=== PATIENT | male | born 1950 | race Caucasian/White ===

== ENCOUNTER 2019-08-22 08:07 | Emergency (ER) | payer MEDICARE, SELFPAY ==
[2019-08-22 08:17] VITALS: BP 203/149; PULSE 116; RESP 18; TEMP 36.7; O2SAT 96; BMI 28.0
--- NOTE | 2019-08-22 08:23 | XR_ITS ---
WS: [id number] PORTABLE CHEST HISTORY: dyspnea COMPARISON: None available. Atelectasis at the lung bases. Small bilateral pleural effusions. At this time there is no significan t cephalization. Cardiac size: Moderately enlarged cardiac silhouette. Mediastinum/Aorta: Mild atherosclerosis aorta. No osseous abnormality seen. XR/XR chest 1V portable [id number] IMPRESSION: Moderate cardiomegaly with small bilateral pleural effusions.
--- NOTE | 2019-08-22 08:23 | ECG_ITS ---
Measurements Intervals [place] Rate: 109 P: ME: 0 QRS: 9 QRSD: 113 T: 65 QT: 332 QTc: 448 ATRIAL FIBRILLATION WITH RAPID VENTRICULAR RESPONSE MODERATE INTRAVENTRICULAR CONDUCTION DELAY [110+ ms QRS DURATION] NONSPECIFIC ST & T-WAVE ABNORMALITY No previous ECG available for comparison Electronically Signed On 08-22-2019 11:49:08 CDT by Nadiya Mendoza M.D. [id number] f
--- NOTE | 2019-08-22 08:32 | W.ED.SOB ---
HPI - SOB/Dyspnea General: Chief Complaint: Shortness of Breath/Dyspnea Stated Complaint: sob/leg swelling Time Seen by Provider: 08/22/19 08:18 History of Present Illness: HPI Narrative: Patient is a 69 year old male presenting with shortness of breath and leg swelling for about 4 days. He reports that in the morning he gets up and the swelling is better in his legs, but then gets worse throughout the day. At night he lays down ok, but after a few hours he wakes up and has to sit up the rest of the night because he can't breath if he lays down. He gets very SOB with exertion. He denies and medical history. He only takes naprosyn about every 3 days or so for knee pain. MD elicited complaint: shortness of breath Onset (ago): day(s) (4) Timing: constant Severity: severe Exacerbating factors: lying flat and exertion Relieving factors: upright position Associated symptoms: Reports orthopnea; Deny abdominal pain, chest pain, cough, dizziness or fever(s) Treatment prior to arrival: none Review of Systems General: Reports: 10 or more systems reviewed and unremarkable except in HPI and below Const: Denies: fever(s), chills, fatigue or malaise Eyes: Denies: change in vision ENMT: Denies: odynophagia Card: Reports: edema, swelling of feet/ankles, dyspnea on exertion and orthopnea; Denies: chest pain Resp: Reports: dyspnea; Denies: productive cough or non-productive cough GI: Denies: abdominal pain : Denies: flank pain Musc: Denies: neck pain or back pain Skin/Breast: Denies: rash Neuro: Denies: dizziness Thomas/Lymph: Denies: easy bruising or easy bleeding PFS ED PFSH: Social History Smoking and tobacco status: never smoked Physical Exam Const: COMMON NORMALS: no acute distress, patient oriented x3, no limitations and alert GENERAL APPEARANCE: cooperative and comfortable HENMT: HEAD & SCALP: normal to inspection FACE & SINUS: normal facial exam Eye: GENERAL EYE: appearance normal, both eyes and all related structures Neck/C-Spine: COMMON NORMALS: supple, no meningeal signs and no JVD Chest: COMMONS NORMALS: normal inspection of the chest Resp: COMMON NORMALS: clear to auscultation bilaterally EFFORT & INSPECTION: Yes tachypneic AUSCULTATION: clear to auscultation bilaterally Cardio: COMMON NORMALS: no JVD and No murmurs present (Cardio) RATE: tachycardic RHYTHM: abnormal rhythm irregularly irregular GI: COMMON NORMALS: Normal to inspection, nondistended, normoactive bowel sounds present, Soft to palpation and non-tender INSPECTION: Yes normal to inspection AUSCULTATION: Yes normoactive bowel sounds PALPATION: Yes Soft to palpation Back/Pelvis: COMMON NORMALS: thoracic and lumbar spine normal to inspection Extremity: COMMON NORMALS: normal to inspection; negative for no pedal edema Neuro: COMMON NORMALS: patient oriented x3, moves all extremities, no focal motor deficits and no sensory deficits noted SENSORIUM/ORIENTATION: Yes alert MENINGEAL SIGNS: Yes no meningeal signs Psych: COMMON NORMALS: mental status grossly normal, cooperative and normal affect Skin: COMMON NORMALS: no rashes or lesions noted and turgor normal GENERAL SKIN EXAM: no rashes or lesions noted and turgor normal Course ED course: Patient new onset a. fib and marked swelling and CHF. He refuses to be admitted to the hospital because his doesn't drive and he doesn't want to have her home alone. I discussed the reasons that I want him to stay in the hospital and he understands - but will not stay. He was given IV lasix and had good urine output. His HR remained between 100 and 120 and his BP remained high - 196/108 even after a good volume of diuresis. I have ordered a dose of cardizem - and if he really won't stay in the end - I will probably send him home on cardizem, lasix, eliquis and arrange for close cardiology follow up. Reevaluation(s): Reevaluation #1: Patient is doing very well. His blood pressures down to 163/93. Heart rate is 89 still in atrial fibrillation. Sats are 94%. He reports feeling much better and has diuresed at least 1500 mL's of urine. He is agreeable to a blood thinner. He has actually an outpatient follow-up appointment with his PCP, Dr. Santos on . He will keep that and I have also put an order for him to follow-up with cardiology. I spoke to Dr. Borrero who agreed with the plan. Also ordered an outpatient echo. Vital Signs: Vital signs: Vital Signs Temperature 98.0 F 08/22/19 08:17 Pulse Rate 86 08/22/19 11:40 Respiratory Rate 19 H 08/22/19 11:40 Blood Pressure 200/112 08/22/19 11:40 Pulse Oximetry 93 08/22/19 11:40 MDM - SOB/Dyspnea Lab Data: Labs: Lab Results 08/22/19 08/22/19 08/22/19 Range/Units 08:30 08:30 08:30 WBC 8.1 (4.0-10.0) 10^3/ uL RBC 5.22 (4.1-5.3) 10^6/u L Hgb 17.8 H (11.7-16.6) g/dL Hct 52.3 H (42.0-52.0) % MCV 100.2 H (80-94) fL MCH 34.1 H (28.0-34.0) pg MCHC 34.0 (30.0-36.0) g/dL RDW 12.3 (12.1-15.1) % Plt Count 134 (130-400) 10^3/c mm MPV 11.1 H (7.4-10.4) fL Neut % (Auto) 74.8 % Lymph % (Auto) 17.3 % [place] % (Auto) 5.2 % Eos % (Auto) 1.9 % Baso % (Auto) 0.6 % Neut # (Auto) 6.0 (1.8-7.7) 10^3/u L Lymph # (Auto) 1.4 (0.8-4.8) 10^3/u L [place] # (Auto) 0.4 (0.2-0.9) 10^3/u L Eos # (Auto) 0.2 (0.0-0.8) 10^3/u L Baso # (Auto) 0.1 (0.0-0.1) 10^3/u L Nucleated RBC % (a uto) 0 % Nucleated RBCs # 0.0 /100WBC Sodium 140 (136-145) mmol/L Potassium 4.9 (3.5-5.1) mmol/L Chloride 101 (98-107) mmol/L Carbon Dioxide 26 (22-29) mmol/L Anion Gap 17.9 (5-19) BUN 14 (8-23) mg/dL Creatinine 0.9 (0.7-1.2) mg/dL GFR Calculation 83.7 L (90-130) mL/min Glucose 123 H (65-115) mg/dL Calculated Osmolal ity 288 (285-295) mOsm/k g Lactate 1.3 (0.5-2.2) mmol/L Calcium 10.2 (8.5-10.5) mg/dL Total Bilirubin 1.3 H (0.15-1.2) mg/dL AST 38 (0-40) U/L ALT 27 (0-41) U/L Alkaline Phosphata se 70 (40-130) IU/L Troponin T Baselin e (0-15) ng/mL Troponin T 120 Min [place] (0-15) ng/mL Delta Troponin T (0-10) ABS# NT-Pro-B Natriuret Pep 8536 H (0-125) pg/mL Total Protein 7.2 (6.6-8.7) g/dL Albumin 4.5 (3.5-5.2) g/dL Globulin 2.7 (1.3-4.6) g/dL Urine Color (Yellow) Urine Appearance (CLEAR) Urine pH (5-7) Ur Specific Gravit y (1.005-1.030) Urine Protein (Negative) Urine Glucose (UA) (Normal) Urine Ketones (Negative) Urine Blood (Negative) Urine Nitrate (Negative) Urine Bilirubin (NEGATIVE) Urine Urobilinogen (Negative) mg/dL Ur Leukocyte Radha ase (Negative) 08/22/19 08/22/19 08/22/19 Range/Units 08:30 08:55 10:23 WBC (4.0-10.0) 10^3/ uL RBC (4.1-5.3) 10^6/u L Hgb (11.7-16.6) g/dL Hct (42.0-52.0) % MCV (80-94) fL MCH (28.0-34.0) pg MCHC (30.0-36.0) g/dL RDW (12.1-15.1) % Plt Count (130-400) 10^3/c mm MPV (7.4-10.4) fL Neut % (Auto) % Lymph % (Auto) % [place] % (Auto) % Eos % (Auto) % Baso % (Auto) % Neut # (Auto) (1.8-7.7) 10^3/u L Lymph # (Auto) (0.8-4.8) 10^3/u L [place] # (Auto) (0.2-0.9) 10^3/u L Eos # (Auto) (0.0-0.8) 10^3/u L Baso # (Auto) (0.0-0.1) 10^3/u L Nucleated RBC % (a uto) % Nucleated RBCs # /100WBC Sodium (136-145) mmol/L Potassium (3.5-5.1) mmol/L Chloride (98-107) mmol/L Carbon Dioxide (22-29) mmol/L Anion Gap (5-19) BUN (8-23) mg/dL Creatinine (0.7-1.2) mg/dL GFR Calculation (90-130) mL/min Glucose (65-115) mg/dL Calculated Osmolal ity (285-295) mOsm/k g Lactate (0.5-2.2) mmol/L Calcium (8.5-10.5) mg/dL Total Bilirubin (0.15-1.2) mg/dL AST (0-40) U/L ALT (0-41) U/L Alkaline Phosphata se (40-130) IU/L Troponin T Baselin e 70 H (0-15) ng/mL Troponin T 120 Min [place] 65.70 H (0-15) ng/mL Delta Troponin T -4.30 L (0-10) ABS# NT-Pro-B Natriuret Pep (0-125) pg/mL Total Protein (6.6-8.7) g/dL Albumin (3.5-5.2) g/dL Globulin (1.3-4.6) g/dL Urine Color Yellow (Yellow) Urine Appearance Clear (CLEAR) Urine pH 6 (5-7) Ur Specific Gravit y 1.005 (1.005-1.030) Urine Protein Neg (Negative) Urine Glucose (UA) Norm (Normal) Urine Ketones Negative (Negative) Urine Blood Neg (Negative) Urine Nitrate Negative (Negative) Urine Bilirubin Neg (NEGATIVE) Urine Urobilinogen Norm (Negative) mg/dL Ur Leukocyte Radha ase Negative (Negative) Discharge Plan Discharge Patient Disposition: Home, Self-Care Clinical Impression: Atrial fibrillation with RVR Congestive heart failure Qualifiers: Heart failure type: unspecified Heart failure chronicity: acute Qualified Code(s): I50.9 - Heart failure, unspecified Condition: Stable Prescriptions: New furosemide 20 mg tablet 20 mg PO QAM Qty: 30 RF: 0 Eliquis 5 mg tablet 5 mg PO BID Qty: 60 RF: 0 diltiazem HCl 120 mg capsule,extended release 12 hr 120 mg PO BID Qty: 60 RF: 0 Discharge Orders: Discharge Order (Routine); Ordered 08/22/19 Ordered By: Chiquita Mccann Other Ambulatory Orders: CV echo complete* [id number] (Routine) Timeframe: 2 Weeks Facility: [facility] - Location: Radiology Ordered By: Chiquita Mccann Referrals: Tiffany Reyes MD [Physician] - 2 weeks (new onset atrial fibrillation and new onset CHF) Discharge Diet: Low Salt Discharge Activity: Resume usual activity Patient Instructions: Heart Failure (ED), Atrial Fibrillation (ED) Activity Restrictions/Additional Instructions: Please see your primary care doctor as scheduled. Follow up with the audio visual aids director as well. We have ordered an outpatient ultrasound of your heart to be done before you see the audio visual aids director. Take the medications as prescribed. You may take two of the furosemide pills in a day if one doesn't seem to be making you urinate a lot. Return to the ED if not improving or if any new or worse symptoms. Coding Level of Care Code ED Customer Engagement Representative for Bernabe Mathew Exam Comprehensive
[2019-08-22 08:39] LABS: Basophils # 0.1 10^3/uL (0.0-0.1); Basophils % 0.6 %; Eosinophils # 0.2 10^3/uL (0.0-0.8); Eosinophils % 1.9 %; Hematocrit 52.3 % (42.0-52.0); Hemoglobin 17.8 g/dL (11.7-16.6); Lymphocytes # 1.4 10^3/uL (0.8-4.8); Lymphocytes % 17.3 %; Mean Corpuscular Hemoglobin 34.1 pg (28.0-34.0); Mean Corpuscular Volume 100.2 fL (80-94); Mean Platelet Volume 11.1 fL (7.4-10.4); Monocytes # 0.4 10^3/uL (0.2-0.9); Monocytes % 5.2 %; Neutrophils % 74.8 %; Nucleated Red Blood Cells % 0 %; Platelet Count 134 10^3/cmm (130-400); Red Blood Count 5.22 10^6/uL (4.1-5.3); Red Cell Distribution Width 12.3 % (12.1-15.1); White Blood Count 8.1 10^3/uL (4.0-10.0)
[2019-08-22 08:52] VITALS: O2SAT 97
[2019-08-22 08:58] LABS: Lactate (Lactic Acid level) 1.3 mmol/L (0.5-2.2)
[2019-08-22 09:00] LABS: Troponin(5th) Baseline 70 ng/mL (0-15)
[2019-08-22 09:08] LABS: Alanine Aminotransferase 27 U/L (0-41); Albumin Level 4.5 g/dL (3.5-5.2); Alkaline Phosphatase 70 IU/L (40-130); Anion Gap 17.9 (5-19); Aspartate Amino Transferase 38 U/L (0-40); Blood Urea Nitrogen 14 mg/dL (8-23); Calcium 10.2 mg/dL (8.5-10.5); Carbon Dioxide 26 mmol/L (22-29); Chloride 101 mmol/L (98-107); Globulin 2.7 g/dL (1.3-4.6); Glomerular Filtration Rate 83.7 mL/min (90-130); Glucose 123 mg/dL (65-115); NT Pro B Type Natriuretic Pept 8536 pg/mL (0-125); Osmolality Calculated 288 mOsm/kg (285-295); Potassium 4.9 mmol/L (3.5-5.1); Sodium 140 mmol/L (136-145); Total Bilirubin 1.3 mg/dL (0.15-1.2); Total Protein 7.2 g/dL (6.6-8.7)
[2019-08-22] MEDS: FUROsemide 10 mg/mL SDV 4mL 40 MG IVP (10:02)
[2019-08-22] MEDS: enoxaparin 100 mg/mL Syringe SUBCUT (10:02)
[2019-08-22 10:08] VITALS: BP 192/121; PULSE 102; RESP 27; O2SAT 93
--- NOTE | 2019-08-22 10:23 | ECG_ITS ---
Measurements Intervals [place] Rate: 100 P: SD: 0 QRS: 10 QRSD: 110 T: 56 QT: 340 QTc: 440 ATRIAL FIBRILLATION WITH RAPID VENTRICULAR RESPONSE MODERATE INTRAVENTRICULAR CONDUCTION DELAY NONSPECIFIC ST & T-WAVE ABNORMALITY No previous ECG available for comparison Electronically Signed On 08-22-2019 11:52:50 CDT by Nadiya Mendoza M.D. [id number]
[2019-08-22 10:48] LABS: Add Urine Microscopic? NO
[2019-08-22 10:55] LABS: Bilirubin Urine Neg (NEGATIVE); Blood Urine Neg (Negative); Glucose Urine UA Norm (Normal); Ketones Urine Negative (Negative); Leukocyte Esterase Urine Negative (Negative); Nitrate Urine Negative (Negative); Protein Urine Neg (Negative); Specific Gravity, Urine 1.005 (1.005-1.030); Urine Appearance Clear (CLEAR); Urine Color Yellow (Yellow); Urobilinogen Urine Norm (Negative); pH Urine 6 (5-7)
[2019-08-22 11:40] VITALS: BP 200/112; PULSE 86; RESP 19; O2SAT 93
[2019-08-22 13:20] VITALS: BP 163/93; PULSE 93; RESP 23; O2SAT 94
--- NOTE | 2019-08-23 10:25 | DCPLANNER ---
photography manager was asked to schedule an outpatient echo for patient and a follow up appointment for patient with [facility]. photography manager got order signed and faxed order to centralized scheduling, will call for appointment information.
--- NOTE | 2019-08-24 11:24 | DCPLANNER ---
Patient has a Echo scheduled for September 07, 2019 at 10:15. manager education called [facility], spoke with Hattie, informed her of the echo scheduled. [facility] will schedule a follow up appointment for patient after the echo, clinic will call patient with appointment information.
--- NOTE | 2019-08-28 07:35 | DCPLANNER ---
Patient has a follow up appointment scheduled with [facility] on Tuesday, September 12, 2019 at 10:15. Clinic will call patient with appointment information.
--- NOTE | 2019-09-26 13:06 | DCPLANNER ---
Patient did attend both the echo cardiogram and follow up with [facility].
== END 2019-08-22 13:20 | disposition home or self-care (01) ==
PROVIDERS: Emergency Provider Emergency Medicine
DX: I50.9 Heart failure, unspecified (principal); I48.20 Chronic atrial fibrillation, unspecified
CPT/HCPCS: 12345; 36415; 71045; 80053; 81003; 83605; 83880; 84484; 85025; 93005; 96372; 96374; 96375; 99283; 99284; J1650; J1940; J3490

== ENCOUNTER 2019-09-07 10:18 | Outpatient (CLI) | payer MEDICARE, SELFPAY ==
--- NOTE | 2019-09-07 10:15 | USCV_ITS ---
Nate Barrera Age: 69 Gender: M : 1950 Exam Date: 09/07/2019 10:23 Ordering Phys: Chiquita Mccann MD Technologist: Negar Vargas [place] [facility] [place]: CHF,AFIB BP: 187 / 73 HR: 75 Rhythm: Sinus Technical Quality: Adequate MEASUREMENTS (Male / Female) Normal Values 2D ECHO LV Diastolic Diameter PLAX 5.7 cm 4.2 - 5.9 / 3.9 - 5.3 cm LV Systolic Diameter PLAX 4.8 cm LV Chamber Size 5.9 cm IVS Diastolic Thickness 1.4 cm 0.6 - 1.0 / 0.6 - 0.9 cm IVS Systolic Thickness 1.7 cm LVPW Diastolic Thickness 2.6 cm 0.6 - 1.0 / 0.6 - 0.9 cm LVPW Systolic Thickness 2.7 cm RV Chamber Size 4.8 cm LVOT Diameter 2.0 cm LV Ejection Fraction 2D Teich 34.7 % LV Ejection Fraction MOD 2C 44.9 % LV Ejection Fraction 2C AL 47.4 % LA Diameter 6.0 cm LA Width 5.5 cm LA Height 6.1 cm RA Width 4.9 cm RA Height 5.9 cm Aorta at Sinotubular Diameter 3.7 cm M-MODE LV Diastolic Diameter MM 7.3 cm 4.2 - 5.9 / 3.9 - 5.3 cm LV Systolic Diameter MM 5.6 cm LV Ejection Fraction MM Teich 46.4 % IVS Diastolic Thickness MM 1.2 cm 0.6 - 1.0 / 0.6 - 0.9 cm IVS Systolic Thickness MM 1.2 cm LVPW Diastolic Thickness MM 0.9 cm 0.6 - 1.0 / 0.6 - 0.9 cm LVPW Systolic Thickness MM 1.4 cm Aortic Annulus Diameter 3.8 cm LA Ao Ratio MM 1.6 MV E Point Septal Separation 1.8 cm DOPPLER AV Peak Velocity 187.0 cm/s LVOT Peak Velocity 104.0 cm/s AV Area Cont Eq vti 1.7 cm squared AV Area Cont Eq pk 1.8 cm squared MV Area PHT 5.4 cm squared Mitral E to A Ratio 3.4 MV E' Velocity 11.0 cm/s Mitral E to MV E' Ratio 12.9 Mitral E to LV E' Lateral Ratio 11.3 Mitral E to LV E' Septal Ratio 15.2 TR Peak Velocity 350.0 cm/s TR Peak Gradient 49.1 mmHg TV Peak E Velocity 63.0 cm/s Right Atrial Pressure 3.0 mmHg Pulmonary Artery Systolic Pressu 52.0 mmHg PV Peak Velocity 68.0 cm/s RV Acceleration Time 0.1 s RV Ejection Time 0.3 s RV AcT/ET 0.3 FINDINGS Left Ventricle Normal LV size with a slightly reduced ejection fraction of 45%. Diffuse hypokinesia of the left ventricle Right Ventricle Normal right ventricular size and systolic function. Right Atrium Mildly increased right atrial size. Left Atrium Moderately increased left atrial size. Mitral Valve Thickened mitral valve. Mild-moderate mitral valve regurgitation. Aortic Valve Thickened aortic valve. [id number]-[id number] aortic valve regurgitation. Tricuspid Valve Mild tricuspid valve regurgitation. Pulmonic Valve No gross abnormalities noted Pericardium No pericardial effusion. Aorta Normal aortic annulus size. CONCLUSIONS Normal LV size with a slightly reduced ejection fraction of 45%. Diffuse hypokinesia of the left ventricle. Biatrial enlargement, left worse than the right Thickened mitral valve. Mild-moderate mitral valve regurgitation. Thickened aortic valve. [id number] aortic valve regurgitation. No gross abnormalities noted. There are no intracardiac masses. There is no pericardial effusion. There are no prior echocardiogram studies to compare. Dr Ashly Gomez MD FACC (Electronically Signed) Final Date: 07 September 2019 16:07 S
== END 2019-09-07 10:19 | disposition home or self-care (01) ==
LOC: RAD 10:24
PROVIDERS: PCP Family Medicine; Visit Provider Emergency Medicine
DX: I48.91 Unspecified atrial fibrillation (principal); I50.9 Heart failure, unspecified; I08.0 Rheumatic disorders of both mitral and aortic valves
CPT/HCPCS: 93306

== ENCOUNTER 2022-08-20 15:39 | Outpatient (CLI) | payer OTHER, SELFPAY ==
--- NOTE | 2022-08-20 15:55 | CTR_ITS ---
PROCEDURE INFORMATION: Exam: CT Chest With Contrast; Diagnostic Exam date and time: 08/20/2022 4:22 PM Age: 72 years old Clinical indication: Shortness of breath; Patient HX: Worsening SOB, PT was told at clinic that he has fluid on lungs that needs to be drained, no mention of malignancy; Additional info: Malignant pleural effusion TECHNIQUE: Imaging protocol: Diagnostic computed tomography of the chest with contrast. Radiation optimization: All CT scans at this facility use at least one of these dose optimization techniques: automated exposure control; mA and/or kV adjustment per patient size (includes targeted exams where dose is matched to clinical indication); or iterative reconstruction. Contrast material: OMNI 350; Contrast volume: 100 ml; Contrast route: INTRAVENOUS (IV); REPORTING DATA: Count of CT and Cardiac NM exams in prior 12 months: This patient has received 0 known CTs and 0 known cardiac nuclear medicine studies in the 12 months prior to the current study. COMPARISON: CR XR chest 1V portable [id number] 08/22/2019 8:23 AM RADIATION DOSE METRICS: Total DLP (mGy-cm): 216.48 FINDINGS: Trachea: Tracheobronchial structures are patent. Lungs: There is linear scarring in the mid and lower lungs bilaterally. Multiple peripheral opacities in the left lingula and right and left lower lobes. There are vessels swirling towards these areas. Findings may represent areas of rounded atelectasis. Area in the right lower lobe measures 3.4 x 5.7 cm (series 3, image 53). Area in the left lower lobe measures 2.8 x 6.4 cm (series 3, image 42). Area in the left lingula measures 3.7 x 1.4 cm (series 3, image 34). No pulmonary parenchymal nodules. Pleural spaces: Mild pleural thickening with associated partially loculated small pleural effusions bilaterally. Heart: Marked enlargement of the heart. Calcification of the aortic valve and mitral valve annulus. Coronary arteries: Mild atherosclerotic calcification in the coronary arteries. Esophagus: The esophagus is unremarkable. Mediastinal space: No mediastinal hematoma. No pneumomediastinum. Lymph nodes: No lymphadenopathy. Vasculature: Mild atherosclerotic changes in the visualized arteries. No evidence for aortic aneurysm or aortic dissection. Pulmonary arteries are unremarkable. Pulmonary veins are unremarkable. Liver: The visualized liver is unremarkable. Spleen: The visualized spleen is unremarkable. Adrenal glands: The visualized right and left adrenal glands are unremarkable. Bones/joints: Bones are diffusely osteopenic. Degenerative changes in the spine and shoulders. Calcification of the anterior longitudinal ligament at multiple levels in the thoracic spine, possibly representing diffuse idiopathic skeletal hyperostosis (DISH). No lytic or sclerotic bony lesions. Soft tissues: The extrathoracic soft tissues are unremarkable. CT/CT chest w con* [id number] IMPRESSION: 1. Mild pleural thickening with associated partially loculated small pleural effusions bilaterally. It is uncertain whether a findings may represent an acute process or if findings are more chronic and related to areas of rounded atelectasis. Clinical correlation is recommended to rule out possible infected pleural effusions. 2. Findings in both lungs suggesting areas of rounded atelectasis. 3. Incidental/nonacute findings are listed in the report.
[2022-08-20] MEDS: iohexol 350 mg/mL 500 mL Btl (per mL) IV (15:56)
[2022-08-20 16:21] LABS: Blood Urea Nitrogen 35 mg/dL (8-23)
== END 2022-08-20 15:40 | disposition home or self-care (01) ==
PROVIDERS: PCP Family Medicine; Visit Provider Family Medicine
DX: C80.1 Malignant (primary) neoplasm, unspecified (principal); J91.0 Malignant pleural effusion; R06.02 Shortness of breath
CPT/HCPCS: 71260; 82565; 84520; Q9967

== ENCOUNTER → 2022-10-21 12:05 | Outpatient (BNVA) | payer OTHER, SELFPAY | PROVIDERS: PCP Family Medicine; Visit Provider Internal Medicine Pulmonary Disease | DX: R06.02 Shortness of breath (principal) | CPT/HCPCS: 36415; 82785; 85025; 86003 ==

== ENCOUNTER 2022-11-06 05:50 | Outpatient (CLI) | payer MEDICARE, SELFPAY ==
--- NOTE | 2022-11-06 10:00 | PETR_ITS ---
PROCEDURE INFORMATION: Exam: PET/CT Skull Base to Mid-thigh Exam date and time: 11/06/2022 10:55 AM Age: 72 years old Clinical indication: Symptoms: Pleural scarring as well as opacities; Additional info: Lung cancer screening, pleural scarring as well as opacities. LABS AND CLINICAL REPORTS: Glucose: 92 mg/dl Treatment strategy for malignancy (PET staging): Initial Staging (PI) TECHNIQUE: Imaging protocol: Following at least four-hour fasting and following the injection of radiopharmaceutical, low dose CT images were obtained. Then, PET images were obtained. Attenuation corrected images were constructed using the CT scan. Fused images of PET and CT were reviewed. The standardized uptake values (SUV) reported below are maximum values within a region of interest, expressed in gm/ml. Exam includes orbital meatal line to mid-thigh. Radiopharmaceutical: 12.44 mCi F-18 FDG (Fluorodeoxyglucose), IV. Time of imaging post radiopharmaceutical administration: 58.5 minutes. Injection site: Right antecubital vein. COMPARISON: CT chest w con* [id number] 08/20/2022. CR XR chest [id number] 08/22/2019. FINDINGS: Brain: Visualized brain has normal physiologic uptake. Dental: Focal increased FDG uptake in the right maxilla at tooth #5 is consistent with a periapical tooth abscess. There is a periapical lucency. Its SUV max is 5.9 (series 4, image 20). Pharynx: No abnormal uptake. Larynx: No abnormal uptake. Lungs, pleura and trachea: No abnormal uptake. Small bilateral pleural effusions appear partially loculated. They were present on the comparison chest x-ray in 2019. No FDG avid pulmonary nodule or mass. Scattered non FDG avid subpleural soft tissue densities at the peripheral aspects of the both lower lobes are consistent with atelectasis and/or scarring. They do not require imaging follow-up. Heart: Stable marked cardiomegaly. Mediastinal space: No abnormal uptake. Liver: No abnormal uptake. Gallbladder and bile ducts: Multiple gallstones are present. No pericholecystic inflammatory changes to suggest cholecystitis. No biliary ductal dilatation. Pancreas: No abnormal uptake. Spleen: The spleen is unremarkable. Adrenal glands: The adrenals are normal. Kidneys and ureters: There is no hydronephrosis, stone or renal mass. Stomach and bowel: No abnormal uptake. Reproductive: Mild prostate enlargement. Vasculature: No abnormal uptake. The abdominal aorta is mildly calcified and 2.8 cm in maximum diameter. Lymph nodes: No abnormal uptake. No lymphadenopathy in the head, neck, chest, abdomen, pelvis or extremities. Bones/joints: No metabolically active areas. Soft tissues: A small fat containing umbilical hernia is 2.5 x 1.4 x 1.7 cm (transverse x ant-post x craniocaudal). Mild increased uptake within the right olecranon bursa is consistent with mild or chronic olecranon bursitis (series 4, image 98). Max SUV is 3.2. PET[facility] [id number] IMPRESSION: 1. No evidence of cancer in the thorax. Small chronic bilateral pleural effusions appear partially loculated. No FDG avid pulmonary nodule. Scattered subpleural densities in the lower lobes are consistent with atelectasis and/or fibrosis. 2. Stable marked cardiomegaly is consistent with chronic congestive heart failure. 3. Cholelithiasis without CT evidence of acute cholecystitis. 4. Focal FDG avidity in the right maxilla at tooth #5 is consistent with a periapical tooth abscess. 5. Additional incidental findings detailed above.
== END 2022-11-06 05:51 | disposition home or self-care (01) ==
PROVIDERS: PCP Family Medicine; Visit Provider Internal Medicine Pulmonary Disease
DX: R93.89 Abnormal findings on diagnostic imaging of other specified body structures (principal)
CPT/HCPCS: 78815; A9552

== ENCOUNTER 2022-11-12 08:56 | Outpatient (CLI) | payer MEDICARE, SELFPAY ==
--- NOTE | 2022-11-12 | ECG_ITS ---
[facility] Test Date: 2022-11-12 Pat Name: Nate Barrera Department: Room: Gender: Male Scale Operator: : 1950 Requested By: Reagan [employer] B Order Number: [id number] Jason MD: Nadiya Mendoza M.D. Interpretive Statements NAME OF STUDY: LEXISCAN SESTAMIBI STRESS TEST INDICATION: Increased shortness of breath PROCEDURE: At the baseline, the blood pressure was 109/89 mmHg with a heart rate of 66 bpm. The electrocardiogram showed atrial fibrillation, right axis deviation. Probable old anteroseptal infarct. Specific ST-T wave changes. The Lexiscan was infused over a period of 20 seconds. A total of 0.4 milligrams of Lexiscan was infused. The stress phase was continued for a total of 5 minutes. Heart rate at the end of the stress phase was 80 bpm with a blood pressure 210/99 mmHg. The EKG at the peak infusion revealed no significant ST-T wave changes. Sestamibi was injected 20 seconds after the Lexiscan infusion. Blood pressure at the end of the recovery phase was 212/91 mmHg with a heart rate of 76 beats per minute. CONCLUSION: 1. No significant EKG changes with the LexiScan infusion. 2. No LexiScan induced chest pain or cardiac arrhythmia. 3. Normal blood pressure and heart rate response. 4. Sestamibi/sestamibi perfusion scan pending; see separate report. Electronically Signed On 11-15-2022 11:17:59 CDT by Nadiya Mendoza M.D. [id number]
[2022-11-12 09:15] VITALS: BMI 21.8
--- NOTE | 2022-11-12 09:38 | NMCV_ITS ---
NM darleen perf SPECT r/s* [id number] Holly Nate Age: 72 Gender: M : 1950 Exam Date: 11/12/2022 10:19 Ordering Phys: Reagan Ha MD Technologist: SAULO Michel Exam Location: [facility] Indications: SHORTNESS OF BREATH STRESS TEST [facility] IMAGE PROTOCOL Rest/Stress 1 Lexiscan Day Radiopharmaceutical Dose (mCi) Administration Site Administered by Rest: Tc-99m 11.0 IV Darrius Lewis, BUILDING ARCHITECT Sestamibi Stress:Tc-99m 33.0 IV Darrius Lewis, BUILDING ARCHITECT Sestamibi Rest: 12-Nov-2022 60 Discovery 630 Stress: 12-Nov-2022 30 Discovery 630 0.4mg Lexiscan. Images obtained in supine and prone position. SPECT RESULTS Technical Quality: Excellent Raw Data Analysis: Normal Image Corrections: No attenuation or motion correction applied Summed Stress Score: 9 Summed Rest Score: 7 Summed Difference Score: 3 PERFUSION FINDINGS Medium sized perfusion abnormality of moderate severity of basal to mid inferolateral, mid to apical inferior and apical lateral zheng on rest and stress images. FUNCTIONAL RESULTS (calculated via Gated SPECT) Stress Image LV EF (%): 53 Stress EDV (mL):247 TID: 1.04 Stress ESV (mL):117 FUNCTIONAL FINDINGS: The left ventricle is normal in size. Transient Ischemia Dilatation of 1. The left ventricular ejection fraction is mildly reduced with a value of 53%. There is mild global hypokinesis. Markedly increased end-diastolic end-systolic volumes. IMPRESSIONS 1. Medium sized perfusion abnormality of moderate severity of basal to mid inferolateral, mid to apical inferior and apical lateral zheng. This may represent old myocardial infarction in right coronary artery/circumflex artery territory or attenuation artifact. 2. The left ventricular ejection fraction is mildly reduced with a value of 53%. There is mild global hypokinesis. 3. EKG portion of the study will be reported separately. 4. No coronary ischemia based on the study. Nadiya Mendoza MD (Electronically Signed) Final Date: 14 November 2022 14:35 S
[2022-11-12] MEDS: regadenoson 0.4 Mg/5 ml Syringe IVP (10:57)
[2022-11-12 11:15] VITALS: BP 212/91; PULSE 82
== END 2022-11-12 08:57 | disposition home or self-care (01) ==
PROVIDERS: PCP Family Medicine; Visit Provider Internal Medicine Pulmonary Disease
DX: R06.02 Shortness of breath (principal)
CPT/HCPCS: 36415; 78452; 82785; 85025; 86003; 96374; A9500; J2785

== ENCOUNTER → 2022-11-18 10:06 | Outpatient (BNVA) | payer MEDICARE, SELFPAY | PROVIDERS: PCP Family Medicine; Visit Provider Internal Medicine Cardiovascular Disease | DX: I48.91 Unspecified atrial fibrillation (principal); I11.0 Hypertensive heart disease with heart failure; I50.9 Heart failure, unspecified; J90 Pleural effusion, not elsewhere classified; I45.9 Conduction disorder, unspecified | CPT/HCPCS: 93005; 99204 ==

== ENCOUNTER 2022-12-10 10:58 | Outpatient (CLI) | payer MEDICARE, SELFPAY ==
--- NOTE | 2022-12-10 11:00 | USCV_ITS ---
Nate Barrera Age: 72 Gender: M : 1950 Exam Date: 12/10/2022 11:21 Ordering Phys: Nadiya Mendoza MD ([email or web address]) Technologist: MARTIN Exam Location: [facility] [place] Indication: SHORTNESS OF BREATH BP: 160 / 80 HR: 81 Rhythm: Atrial fibrillation Technical Quality: Adequate MEASUREMENTS (Male / Female) Normal Values 2D ECHO LVOT Diameter 2.0 cm LV Ejection Fraction MOD 2C 55.0 % LV Ejection Fraction 2C AL 54.8 % LA Diameter 3.7 cm LA Width 5.0 cm LA Height 6.2 cm RA Width 5.3 cm RA Height 5.9 cm Aorta at Sinotubular Diameter 3.1 cm IVC Diameter 1.2 cm M-MODE Aortic Annulus Diameter 2.7 cm LA Ao Ratio MM 1.4 MV E Point Septal Separation 1.2 cm DOPPLER AV Peak Velocity 200.7 cm/s LVOT Peak Velocity 123.0 cm/s AV Area Cont Eq vti 2.3 cm squared AV Area Cont Eq pk 2.0 cm squared MV Peak Velocity 209.0 cm/s MV Area PHT 5.4 cm squared MV E' Velocity 118.0 cm/s Mitral E to MV E' Ratio 18.3 Mitral E to LV E' Lateral Ratio 19.0 Mitral E to LV E' Septal Ratio 17.5 TR Peak Velocity 225.3 cm/s TR Peak Gradient 20.3 mmHg TR Mean Velocity 184.8 cm/s TR Mean Gradient 13.9 mmHg TR Velocity Time Integral 60.8 cm TV Peak E Velocity 62.0 cm/s Right Atrial Pressure 3.0 mmHg Pulmonary Artery Systolic Pressu 23.3 mmHg PV Peak Velocity 99.0 cm/s RV Acceleration Time 0.1 s RV Ejection Time 0.3 s RV AcT/ET 0.2 FINDINGS Left Ventricle Normal left ventricular size, systolic function and wall thickness, with no regional wall motion abnormalities. Left ventricular ejection fraction is estimated at 55-60 %. Rhythm precludes evaluation of diastolic function. Right Ventricle Normal right ventricular size and systolic function. Right ventricular systolic pressure 23.3 mmHg. Right Atrium Normal right atrial size. Left Atrium Moderately increased left atrial size. Mitral Valve Mild mitral annular calcification. Moderately thickened and calcified mitral valve. No mitral valve stenosis. Mild mitral valve regurgitation. Aortic Valve Moderately thickened and calcified trileaflet aortic valve (more so of non coronary cusp). Moderate eccentric aortic valve regurgitation. Tricuspid Valve Structurally normal tricuspid valve. No tricuspid valve stenosis. Mild tricuspid valve regurgitation. Pulmonic Valve Structurally normal pulmonic valve. No pulmonary valve stenosis. Trace pulmonary valve regurgitation. Pericardium No pericardial effusion. Aorta Dilated aortic root measured at 46 mm and ascending aorta measured at 39 mm anteroposteriorly IVC Normal IVC dimension with >50% respiratory change of the inferior vena cava. CONCLUSIONS 1. Normal left ventricular size, systolic function and wall thickness, with no regional wall motion abnormalities. Left ventricular ejection fraction is estimated at 55-60 %. 2. Moderately thickened and calcified trileaflet aortic valve (more so of non coronary cusp). Moderate eccentric aortic valve regurgitation. 3. Mild mitral and tricuspid valve regurgitation. 4. Compared to study dated 09/07/2019, left ventricular systolic function seems to have improved. Nadiya Mendoza MD (Electronically Signed) Final Date: 23 December 2022 17:06 S
== END 2022-12-10 10:59 | disposition home or self-care (01) ==
PROVIDERS: PCP Family Medicine; Visit Provider Internal Medicine Cardiovascular Disease
DX: I48.91 Unspecified atrial fibrillation (principal); R06.02 Shortness of breath
CPT/HCPCS: 93306

== ENCOUNTER → 2022-12-16 07:48 | Outpatient (BNVA) | payer MEDICARE, SELFPAY | PROVIDERS: PCP Family Medicine; Visit Provider Internal Medicine Pulmonary Disease | DX: J82.83 Eosinophilic asthma (principal); J98.11 Atelectasis; R06.02 Shortness of breath; J90 Pleural effusion, not elsewhere classified; I48.91 Unspecified atrial fibrillation; I50.9 Heart failure, unspecified | CPT/HCPCS: 99214 ==

== ENCOUNTER → 2022-12-30 13:51 | Outpatient (BNVA) | payer MEDICARE, SELFPAY | PROVIDERS: PCP Family Medicine; Visit Provider Internal Medicine Cardiovascular Disease | DX: I11.0 Hypertensive heart disease with heart failure (principal); I50.9 Heart failure, unspecified; I48.19 Other persistent atrial fibrillation; J90 Pleural effusion, not elsewhere classified; Z79.01 Long term (current) use of anticoagulants | CPT/HCPCS: 99214 ==

== ENCOUNTER 2025-02-24 16:20 | Inpatient (IN) | payer MEDICARE, SELFPAY ==
[2025-02-24] VITALS (14 sets, daily range): BP systolic 118–180; BP diastolic 54–84; PULSE 68–96; RESP 20–34; TEMP 36.6; O2SAT 73–100; BMI 20.7
--- NOTE | 2025-02-24 16:21 | XRR_ITS ---
PROCEDURE INFORMATION: Exam: XR Chest Exam date and time: 02/24/2025 4:35 PM Age: 75 years old Clinical indication: Shortness of breath; Additional info: SOB TECHNIQUE: Imaging protocol: Radiologic exam of the chest. Views: 1 view. COMPARISON: CT chest w con* [id number] 08/20/2022 4:22 PM FINDINGS: Lungs: Bibasilar opacities similar compared to prior CT chest. Upper lobes remain clear. Pleural spaces: [id number] left pleural effusion. Small right pleural effusion. No pneumothorax. Heart/Mediastinum: Guqu-sa-[id number] cardiomegaly. Bones/joints: No acute osseous abnormalities are seen. XR/XR chest 1V portable [id number] IMPRESSION: Bilateral pleural effusions with adjacent atelectasis/consolidation, similar in appearance compared to production illustrator view from prior CT chest.
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
--- OUTSIDE RECORDS SUMMARY | 2025-02-24 16:28 | XMS_ITS | Clinical Summary ---
Author Organization [facility] Address [address] [place] [address] Care Team Providers Care Industrial Relations Manager Name Role Phone Marisol Santos Primary Care Provider Allergies No known active allergies Medications sildenafil (VIAGRA) 50 mg tabletIndications :Erectile dysfunction, unspecified erectile dysfunction type Take 1-2 Tablets (50-100 mg) by mouth 1 time daily as needed for Erectile Dysfunction. 12 Tablet 9 Active furosemide (LASIX) 40 mg tabletIndications :Essential hypertension Take 1 Tablet (40 mg) by mouth daily. 90 Tablet 4 0 Active potassium chloride (KLOR-CON) 20 mEq Extended Release tabletIndications :Essential hypertension Take 1 Tablet (20 mEq) by mouth daily. 90 Tablet 4 0 Active carvediloL (COREG) 25 mg tabletIndications :Paroxysmal atrial fibrillation (CMS/HCC) Take 1 Tablet (25 mg) by mouth 2 times daily with meals. 180 Tablet 3 1 Active rivaroxaban (Xarelto) 20 mg TabletIndications :Paroxysmal atrial fibrillation (CMS/HCC) Take 1 Tablet (20 mg) by mouth daily. 30 Tablet 6 1 Active Active Problems Problem Noted Date Diagnosed Date Mixed hyperlipidemia 02/07/2020 Essential hypertension 02/07/2020 Family History Medical History Relation Name Comments Cancer Mother Relation Name Status Comments Father Mother Social History Tobacco Use Types Packs/Day Years Used Date Smoking Tobacco: Never Smokeless Tobacco: Never Alcohol Use Standard Drinks/Week Comments Yes 0 (1 standard drink = 0.6 oz pur e alcohol) occasional Social Connections Answer Date Recorded In a typical week, how many times do you talk on the phone with family, friends, or neighbors? Twice a week 01/24/2020 How often do you get togethe r with friends or relatives? Three times a week 01/24/2020 How often do you attend chur ch or nondenominational services? Never 01/24/2020 Do you belong to any clubs o r organizations such as zoroastrian groups, unions, fraternal or athletic groups, or school groups? Yes 01/24/2020 Attends Club or Organization Meetings Not on fernanda e 01/24/2020 Marital Status Not on file 01/24/2020 Financial Resource Strain Answer Date R ecorded How hard is it for you to pa y for the very basics like food, housing, medical care, and heating? Not hard at all 01/24/2020 Food Insecurity Answer Date Recorded Within the past 12 months, y ou worried that your food would run out before you got the money to buy more. Never true 01/24/20 20 Within the past 12 months, t he food you bought just didn't last and you didn't have money to get more. Never true 01/24/2020 Transportation Needs Answer Date Record ed In the past 12 months, has l ack of transportation kept you from medical appointments or from getting medications? No 12/27 In the past 12 months, has l ack of transportation kept you from meetings, work, or from getting things needed for daily living? No 01/24/2020 Education Answer Date Recorded What is the highest level of school you have completed or the highest degree you have received? 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 Gender Identity Not on file Sexual Orientation Not on file Last Filed Vital Signs Vital Sign Reading Time Taken Comments Blood Pressure 146/82 08/12/2020 9:51 AM CDT Pulse 83 08/12/2020 9:51 AM CDT Temperature 36.2 C (97.2 F) 08/12/2020 9:51 AM CDT Respiratory Rate 18 08/12/2020 9:51 AM CDT Oxygen Saturation 94% 08/12/2020 9:51 AM CDT Inhaled Oxygen Concentration - - Weight 91.2 kg (201 lb) 08/12/2020 9:51 AM CDT Height 185.4 cm (6' 1 ) 08/12/2020 9:51 AM CDT Body Mass Index 26.52 08/12/2020 9:51 AM CDT Plan of Treatment Health Maintenance Due Date Last Done Comments FIT/ DNA Q 3 YEARS (AUTO ORDER) 02/23/1968 FLEX SIG/CT COLONOGRAPHY Q 5 YEARS (AUTO ORDER) 02/23/1968 DTAP/TDAP/TD VACCINES (1 - Tdap) 1969 PNEUMOCOCCAL VACCINE 50+ YEA RS (1 of 2 - PCV) 1969 COLORECTAL CANCER SCREENING (AUTO ORDER) 1995 COLORECTAL SCREENING 1995 FIT-DNA Q 3 years 1995 Flex Sig/CT Colonography Q 5 years 1995 ZOSTER VACCINE (1 of 2) 02/23/2000 Colorectal Cancer Screening (AUTO ORDER) 12/30/2020 FIT/FOBT Q 1 YEAR (AUTO ORDER) 12/30/2020 12/31/2019 Colorectal Cancer Screening 01/02/2021 FIT/FOBT Q 1 year 01/02/2021 01/03/2020, 12/31/2019 Medicare Advantage ([place]) Prev entative Visit/Annual Wellness Visit 03/28/2024 08/12/2020, 01/24/2020 INFLUENZA VACCINE (#1) 2024 RSV VACCINE (60+ or ) (1 - 1-dose 75+ series) 2025 Procedures Procedure Name Priority Date/Time Associated Diagnosis Comments OCCULT BLOOD IMMUNOASSAY, COLORECTAL SCREEN Routine 12/31/2019 from Last 3 Months or Most Recently Relevant to Health Maintenance Results * OCCULT BLOOD IMMUNOASSAY, COLORECTAL SCREEN (12/31/2019) Stool STOOL SPECIMEN / Unknown us Abstract Spg Provider BODY FLUIDS AND STOOLS Fin al Result from Last 3 Months or Most Recently Relevant to Health Maintenance Insurance [facility] Care Teams Industrial Relations Manager Relationship Specialty Start Date End Date Mraisol Santos DO [address] [place] [address] PCP - General Family Practice 06/01/17
--- NOTE | 2025-02-24 16:45 | ECG_ITS ---
[facility] Test Date: 2025-02-24 Pat Name: Nate Barrera Department: Room: Gender: Male Hotel Or Motel Manager: : 1950 Requested By: Marnie Rhodes Order Number: [id number] Jason MD: Ashly Gomez M.D. Measurements Intervals [place] Rate: 88 P: 0 MO: 0 QRS: 89 QRSD: 127 T: 114 QT: 359 QTc: 435 Interpretive Statements ATRIAL FIBRILLATION INDETERMINATE AXIS MODERATE INTRAVENTRICULAR CONDUCTION DELAY [105+ ms QRS DURATION, 80+ ms Q/S IN V1/V2, NO Q AND 60+ ms R IN I/aVL/V5/V6] MODERATE ST DEPRESSION [0.05+ mV ST DEPRESSION] Compared to ECG 11/18/2022 10:15:24 Indeterminate axis now present ST (T wave) deviation now present Electronically Signed On 02-26-2025 20:10:45 ICU STAFF NURSE by Ashly Gomez M.D. [id number] [id number]
--- NOTE | 2025-02-24 16:59 | ED_ITS ---
Documented by User: KALIN Arzola 02/24/25 19:14 HPI - SOB/Dyspnea 2 General: Chief Complaint: Shortness of Breath/Dyspnea Stated Complaint: sob Time Seen by Provider: 02/24/25 16:32 History of Present Illness: HPI Narrative: Patient is a 75-year-old gentleman with history of CHF, EF 55-60%, atrial fibrillation on Cardizem and Eliquis, presents to the emergency room with shortness of breath. Patient states he has been short of breath for 2 years. He does not complain of any recent virus, or illness. EMS was called. Family is not nearby. He is awake, alert, and oriented x 3. EMS noted his oxygen saturation in the low 80s. He is not on home oxygen. Denies any chest pain. Denies any sick contact. Denies any nausea, vomiting. Associated symptoms: Deny chest congestion, chest pain, dizziness, fever(s), lightheadedness or palpitations Related Data Home Medications ?Medication ?Instructions ?Recorded ?Confirmed furosemide 40 mg tablet 40 mg PO BID 11/18/22 potassium chloride 20 mEq 20 meq PO BID 11/18/2212/16 tablet,extended release metoprolol tartrate 50 mg tablet 50 mg PO BID 12/30/22 naproxen sodium 220 mg tablet 220 mg PO BID PRN (Aleve) Previous Rx's ?Medication ?Instructions ?Recorded albuterol sulfate 90 mcg/actuation 1 inh inhalation QI D PRN shortness 11/25/22 aerosol inhaler (Ventolin HFA) of breath or wheezing # 8.5 grams apixaban 5 mg tablet (Eliquis) 5 mg PO BID #60 tabs fluticasone furoate 50 1 inh inhalation DAILY #60 e a 07/15/23 mcg-vilanterol 25 mcg/dose inhalation powder (Breo Ellipta) Allergies Allergy/AdvReac Type Severity Reaction Status Date / Time mold Allergy Unknown Unknown Verified 12/30/22 10:10 ragweed pollen Allergy Unknown Unknown Verified 12/30/22 10:10 Review of Systems 2 General: Reports: 10 or more systems reviewed and unremarkable except in HPI and below Const: Denies: fever(s) or chills Eyes: Denies: change in vision ENMT: Denies: disequilibrium Card: Reports: dyspnea on exertion; Denies: chest pain, palpitations, irregular heart rhythm, swelling of feet/ankles or lightheadedness Resp: Reports: dyspnea ( For 2 years ) and non-productive cough; Denies: productive cough, pain on inspiration, change in phlegm color or chest congestion GI: Denies: hematochezia : Denies: hematuria Musc: Denies: neck pain, back pain, muscle cramps or muscle weakness Skin/Breast: Reports: dry skin; Denies: rash or pruritus Neuro: Denies: headache(s), numbness in extremities, weakness in extremities or dizziness Psych: Denies: anxiety or depression Endo: Reports: tired all the time Thomas/Lymph: Denies: easy bruising or easy bleeding All/Imm: Denies: seasonal rhinorrhea PFSH ED 2 PFSH: Medical History (Updated 02/24/25 @ 18:46 by KALIN Arzola) Congestive heart failure Atrial fibrillation Surgical History S/P tonsillectomy Family History Brother Stroke 71 yr old Family/Other Cancer Maternal side Social History Smoking and tobacco/nicotine status: never used tobacco/nicotine Alcohol intake: current Alcohol intake frequency: holidays/special occasions only Substance/Drug Use: never Physical Exam 2 Const: COMMON NORMALS: no acute distress, average body habitus, patient oriented x3, alert and well nourished GENERAL APPEARANCE: cooperative, comfortable, well kempt and well developed ORIENTATION/CONSCIOUSNESS: Yes oriented to person, Yes oriented to place and Yes oriented to time HENMT: COMMON NORMALS: normocephalic, atraumatic, hearing grossly normal bilaterally, external ears normal and Normal external nose present HEAD & SCALP: normocephalic and atraumatic FACE & SINUS: face symmetric NOSE: N ormal external nose present EXTERNAL EAR: Yes external ears normal Eye: COMMON NORMALS: EOMs intact bilaterally and conjunctivae normal A LIGNMENT: Yes alignment normal CONJUNCTIVA: Yes conjunctivae normal S CLERA: sclerae normal Neck/C-Spine: COMMON NORMALS: supple and no JVD; negative for No carotid bruits GENERAL: Yes trachea midline Chest: COMMONS NORMALS: normal inspection of the chest CHEST: Yes Symmetrical chest wall rise and No tenderness Resp: COMMON NORMALS: No use of accessory muscles EFFORT & INSPECTION: Yes able to speak in complete sentences and Yes symmetric chest movement A USCULTATION: no crackles, rales (Posterior bases), no rhonchi, no wheezes and diminished lung sounds (Upper lobes) Cardio: COMMON NORMALS: no JVD, regular rate, regular rhythm, S1 normal heart sound present, S2 normal heart sound present and Peripheral pulses 2+ throughout; negative for No gallops present (Cardio) JUGULAR VENOUS DISTENTION: no JVD PALPATION: normal PMI and no heave RATE: regular rate RHYTHM: regular rhythm HEART SOUNDS: S1 normal heart sound present, S2 normal heart sound present, no gallops and no murmurs BRUITS: no carotid bruits PERIPHERAL PULSES: Peripheral pulses 2+ throughout GI: COMMON NORMALS: Normal to inspection, nondistended, normoactive bowel sounds present, Soft to palpation and non-tender PALPATION: Yes Soft to palpation RECTAL EXAM: Yes deferred Extremity: GENERAL: No cyanosis, Yes edema (2+ bilateral leg and feet edema) and No pallor Neuro: COMMON NORMALS: patient oriented x3, no focal motor deficits and gait normal SENSORIUM/ORIENTATION: Yes alert, Yes oriented to person, Yes oriented to place and Yes oriented to time CRANIAL NERVES: Yes CN normal except as noted Psych: COMMON NORMALS: Normal thought process present APPEARANCE: Yes well kempt MOOD & AFFECT: Yes euthymic mood THOUGHT PROCESS: Normal thought process present THOUGHT CONTENT: Yes Normal thought content present M NATY/COGNITION: Yes memory grossly intact Course 2 Reevaluation(s): Reevaluation #1: Bipap added. Patient is conversant, does not appear short of breath. Reevaluation #2: Discussed the case with on-call hospitalist. Accepted admission. Vital Signs: Vital signs: Vital Signs Temperature 97.9 F 02/24/25 16:28 Pulse Rate 80 02/24/25 20:55 Respiratory Rate 27 H 02/24/25 20:41 Blood Pressure 154/78 02/24/25 20:41 Pulse Oximetry 98 02/24/25 20:55 Oxygen Delivery Me thod Room Air 02/24/25 20:41 Oxygen Flow Rate 3 02/24/25 18:49 Fraction of Inspir ed Oxygen 45 02/24/25 20:55 MDM - SOB/Dyspnea Medical Decision Making Patient is a 75-year-old gentleman, history of A-fib on Eliquis, Cardizem medication at bedside, presents to the ED due to shortness of breath. He cannot define the timeline, although he is oriented, alert, and realizes he just had a birthday 2 days ago. He also tells me about his brand-new twin great grandsons that were just born 5 days ago. He does however appear confused. Will check his pCO2 via ABG, and assess his hypoxemia. He is now above 90% on 3 L/min. He will require admission to the hospital for further investigation. Discussed with patient. Potassium 7.3, redraw ordered. In the interim, sodium HCO3, calcium gluconate, insulin 10 units, and D50 all ordered, as well as albuterol treatment, and Kayexalate. No Lokelma available at this facility. Lasix added per pleural effusion. BNP also elevated. Still awaiting redraw potassium. Medical Records I reviewed the patient's medical records. Lab Data I reviewed the patient's lab results. Previous creatinine 1.5 02/24/25 16:43 02/24/25 18:07 Labs/Radiology: Radiology Impressions Chest X-Ray 02/24/25 16:21 IMPRESSION: Bilateral pleural effusions with adjacent atelectasis/consolidation, similar in appearance compared to student nurse view from prior CT chest. Laboratory Results WBC 5.55 10^3/uL (3.29-11.43) 02/24/25 16:43 RBC 4.33 10^6/uL (3.85-5.65) 02/24/25 16:43 Hgb 10.30 g/dL (11.27-16.99) L 02/24/25 16:43 Hct 37.4 % (37-53) 02/24/25 16:43 MCV 86.4 fl (82-101) 02/24/25 16:43 MCH 23.8 pg (27-33) L 02/24/25 16:43 MCHC 27.5 g/dL (30-55) L 02/24/25 16:43 RDW 16.3 % (12.1-15.1) H 02/24/25 16:43 Plt Count 201 10^3/cmm (157-399) 02/24/25 16:43 MPV 10.5 fL (7.4-10.4) H 02/24/25 16:43 Neut % (Auto) 78.5 % 02/24/25 16:43 Lymph % (Auto) 10.5 % 02/24/25 16:43 [facility] % (Auto) 6.3 % 02/24/25 16:43 Eos % (Auto) 2.9 % 02/24/25 16:43 Baso % (Auto) 1.1 % 02/24/25 16:43 Neut # (Auto) 4.36 10^3/uL (1.8-7.7) 02/24/25 16:43 Lymph # (Auto) 0.6 10^3/uL (0.8-4.8) L 02/24/25 16:43 [facility] # (Auto) 0.4 10^3/uL (0.2-0.9) 02/24/25 16:43 Eos # (Auto) 0.2 10^3/uL (0.0-0.8) 02/24/25 16:43 Baso # (Auto) 0.1 10^3/uL (0.0-0.1) 02/24/25 16:43 Nucleated RBC % (auto) 0 % 02/24/25 16:43 Nucleated RBCs # 0.0 /100WBC 02/24/25 16:43 Specimen Type Arterial 02/24/25 18:26 Sample Site Radial, right 02/24/25 18:26 ABG pH 7.28 (7.35-7.45) L 02/24/25 18:26 ABG pCO2 61.7 mmHg (35-45) H* 02/24/25 18:26 ABG pO2 67.9 mmHg (80.0-100.0) L 02/24/25 18:26 ABG PO2/FiO2 Ratio 212 02/24/25 18:26 ABG HCO3 29.0 mmol/L (22-26) H 02/24/25 18:26 ABG O2 Saturation 90.7 02/24/25 18:26 ABG Base Excess 1.2 mmol/L (-2.0-2.0) 02/24/25 18:26 Perfecto Test Pos 11/30/25 18:26 A-a O2 Gradient 11.5 mmHg (5-10) H 02/24/25 18:26 Hematocrit 33.2 % (42-52) L 02/24/25 18:26 Hgb O2 Saturation 88.0 % (95-100) L 02/24/25 18:26 Carboxyhemoglobin 1.9 %THgb (0.4-20.1) 02/24/25 18:26 Methemoglobin 1.0 % (0.4-1.5) 02/24/25 18:26 Total Hemoglobin 10.8 g/dL (14-18) L 02/24/25 18:26 Sodium 141.0 mmol/L (131-143) 02/24/25 18:26 Potassium 7.2 mmol/L (3.5-5.0) H 02/24/25 18:26 Glucose 147.0 mg/dL (70-115) H 02/24/25 18:26 Ionized Calcium 1.3 mmol/L (1.1-1.4) 02/24/25 18:26 O2 Delivery Device Nc 02/24/25 18:26 O2 Liters/Min 3.0 % 02/24/25 18:26 FiO2 32.0 % 02/24/25 18:26 Transportation Dispatch Manager ID glc 02/24/25 18:26 Sodium 136 mmol/L (136-145) 02/24/25 16:43 Potassium 8.3 mmol/L (3.5-5.1) H* 02/24/25 18:07 Chloride 103 mmol/L (98-107) 02/24/25 16:43 Carbon Dioxide 25 mmol/L (22-29) 02/24/25 16:43 Anion Gap 15.3 (5-19) 02/24/25 16:43 BUN 41 mg/dL (8-23) H 02/24/25 16:43 Creatinine 1.6 mg/dL (0.7-1.2) H 02/24/25 16:43 GFR Calculation Not Reportable 02/24/25 16:43 Glucose 87 mg/dL (65-115) 02/24/25 16:43 POC Glucose 151 mg/dL (70-110) H 02/24/25 19:08 Calculated Osmolality 291 mOsm/kg (285-295) 02/24/25 16:43 Calcium 9.0 mg/dL (8.5-10.5) 02/24/25 16:43 Total Bilirubin 0.9 mg/dL (0.15-1.2) 02/24/25 16:43 AST 9 U/L (0-40) 02/24/25 16:43 ALT < 5 U/L (0-41) 02/24/25 16:43 Alkaline Phosphatase 69 U/L (40-130) 02/24/25 16:43 NT-Pro-B Natriuret Pep 31696 pg/mL (0-450) H 02/24/25 16:43 Total Protein 7.3 g/dL (6.6-8.7) 02/24/25 16:43 Albumin 3.6 g/dL (3.5-5.2) 02/24/25 16:43 Globulin 3.7 g/dL (1.3-4.6) 02/24/25 16:43 Influenza A (PCR) Negative (Negative) 02/24/25 18:38 Influenza Type B (PCR) Negative (Negative) 02/24/25 18:38 RSV (PCR) Negative (Negative) 02/24/25 18:38 SARS-CoV-2 (PCR) Negative (Negative) 02/24/25 18:38 All radiology interpretation(s) finalized by discharge ED provider radiology interpretation(s): Large pleural effusion left, bilateral noted EKG Data EKG 1: Interpretation: Atrial fibrillation without ST segment elevation. LVH, no peaked t waves EKG 2: Interpretation: Atrial fibrillation without ST segment elevation, no peaked T waves ABG Data ABG Interpretation 1: ABG results: Acute respiratory acidosis, acute hypoxemia with supplemental O2 at 3 L. Discharge Plan Discharge Patient Disposition: Admitted As Inpatient Admit Provider: Jose Solomon Clinical Impression: Acute hypoxemic respiratory failure, Bilateral pleural effusion, Acute hypercapnic respiratory failure, Acute hyperkalemia, Acute diastolic (congestive) heart failure Condition: Stable Discharge Diet: As Directed Coding Level of Care Code ED Deposition Operator for Chg Fwd Documented by User: Zeus Andrew David, DO 02/24/25 21:07 HPI - SOB/Dyspnea 2 General: Chief Complaint: Shortness of Breath/Dyspnea Stated Complaint: sob Time Seen by Provider: 02/24/25 16:32 Related Data Home Medications ?Medication ?Instructions ?Recorded ?Confirmed furosemide 40 mg tablet 40 mg PO BID 11/18/22 potassium chloride 20 mEq 20 meq PO BID 11/18/2212/16 tablet,extended release metoprolol tartrate 50 mg tablet 50 mg PO BID 12/30/22 naproxen sodium 220 mg tablet 220 mg PO BID PRN (Aleve) Previous Rx's ?Medication ?Instructions ?Recorded albuterol sulfate 90 mcg/actuation 1 inh inhalation QI D PRN shortness 11/25/22 aerosol inhaler (Ventolin HFA) of breath or wheezing # 8.5 grams apixaban 5 mg tablet (Eliquis) 5 mg PO BID #60 tabs fluticasone furoate 50 1 inh inhalation DAILY #60 e a 07/15/23 mcg-vilanterol 25 mcg/dose inhalation powder (Breo Ellipta) Allergies Allergy/AdvReac Type Severity Reaction Status Date / Time mold Allergy Unknown Unknown Verified 12/30/22 10:10 ragweed pollen Allergy Unknown Unknown Verified 12/30/22 10:10 PFS ED 2 PFSH: Medical History (Updated 02/24/25 @ 18:46 by KALIN Arzola) Congestive heart failure Atrial fibrillation Surgical History S/P tonsillectomy Family History Brother Stroke 71 yr old Family/Other Cancer Maternal side Social History Smoking and tobacco/nicotine status: never used tobacco/nicotine Alcohol intake: current Alcohol intake frequency: holidays/special occasions only Substance/Drug Use: never Course 2 Vital Signs: Vital signs: Vital Signs Temperature 97.9 F 02/24/25 16:28 Pulse Rate 80 02/24/25 20:55 Respiratory Rate 27 H 02/24/25 20:41 Blood Pressure 154/78 02/24/25 20:41 Pulse Oximetry 98 02/24/25 20:55 Oxygen Delivery Me thod Room Air 02/24/25 20:41 Oxygen Flow Rate 3 02/24/25 18:49 Fraction of Inspir ed Oxygen 45 02/24/25 20:55 MDM - SOB/Dyspnea Medical Decision Making Patient is a 75-year-old gentleman, history of A-fib on Eliquis, Cardizem medication at bedside, presents to the ED due to shortness of breath. He cannot define the timeline, although he is oriented, alert, and realizes he just had a birthday 2 days ago. He also tells me about his brand-new twin great grandsons that were just born 5 days ago. He does however appear confused. Will check his pCO2 via ABG, and assess his hypoxemia. He is now above 90% on 3 L/min. He will require admission to the hospital for further investigation. Discussed with patient. Potassium 7.3, redraw ordered. In the interim, sodium HCO3, calcium gluconate, insulin 10 units, and D50 all ordered, as well as albuterol treatment, and Kayexalate. No Lokelma available at this facility. Lasix added per pleural effusion. BNP also elevated. Still awaiting redraw potassium. Patient was originally seen by Ms. Rafal PA-C. I agree with her history, evaluation, and management. Admission orders have been written. Lab Data 02/24/25 16:43 02/24/25 18:07 Labs/Radiology: Radiology Impressions Chest X-Ray 02/24/25 16:21 IMPRESSION: Bilateral pleural effusions with adjacent atelectasis/consolidation, similar in appearance compared to student nurse view from prior CT chest. Laboratory Results WBC 5.55 10^3/uL (3.29-11.43) 02/24/25 16:43 RBC 4.33 10^6/uL (3.85-5.65) 02/24/25 16:43 Hgb 10.30 g/dL (11.27-16.99) L 02/24/25 16:43 Hct 37.4 % (37-53) 02/24/25 16:43 MCV 86.4 fl (82-101) 02/24/25 16:43 MCH 23.8 pg (27-33) L 02/24/25 16:43 MCHC 27.5 g/dL (30-55) L 02/24/25 16:43 RDW 16.3 % (12.1-15.1) H 02/24/25 16:43 Plt Count 201 10^3/cmm (157-399) 02/24/25 16:43 MPV 10.5 fL (7.4-10.4) H 02/24/25 16:43 Neut % (Auto) 78.5 % 02/24/25 16:43 Lymph % (Auto) 10.5 % 02/24/25 16:43 [facility] % (Auto) 6.3 % 02/24/25 16:43 Eos % (Auto) 2.9 % 02/24/25 16:43 Baso % (Auto) 1.1 % 02/24/25 16:43 Neut # (Auto) 4.36 10^3/uL (1.8-7.7) 02/24/25 16:43 Lymph # (Auto) 0.6 10^3/uL (0.8-4.8) L 02/24/25 16:43 [facility] # (Auto) 0.4 10^3/uL (0.2-0.9) 02/24/25 16:43 Eos # (Auto) 0.2 10^3/uL (0.0-0.8) 02/24/25 16:43 Baso # (Auto) 0.1 10^3/uL (0.0-0.1) 02/24/25 16:43 Nucleated RBC % (auto) 0 % 02/24/25 16:43 Nucleated RBCs # 0.0 /100WBC 02/24/25 16:43 Specimen Type Arterial 02/24/25 18:26 Sample Site Radial, right 02/24/25 18:26 ABG pH 7.28 (7.35-7.45) L 02/24/25 18:26 ABG pCO2 61.7 mmHg (35-45) H* 02/24/25 18:26 ABG pO2 67.9 mmHg (80.0-100.0) L 02/24/25 18:26 ABG PO2/FiO2 Ratio 212 02/24/25 18:26 ABG HCO3 29.0 mmol/L (22-26) H 02/24/25 18:26 ABG O2 Saturation 90.7 02/24/25 18:26 ABG Base Excess 1.2 mmol/L (-2.0-2.0) 02/24/25 18:26 Perfecto Test Pos 02/24/25 18:26 A-a O2 Gradient 11.5 mmHg (5-10) H 02/24/25 18:26 Hematocrit 33.2 % (42-52) L 02/24/25 18:26 Hgb O2 Saturation 88.0 % (95-100) L 02/24/25 18:26 Carboxyhemoglobin 1.9 %THgb (0.4-20.1) 02/24/25 18: Methemoglobin 1.0 % (0.4-1.5) 02/24/25 18:26 Total Hemoglobin 10.8 g/dL (14-18) L 02/24/25 18:26 Sodium 141.0 mmol/L (131-143) 02/24/25 18:26 Potassium 7.2 mmol/L (3.5-5.0) H 02/24/25 18:26 Glucose 147.0 mg/dL (70-115) H 02/24/25 18:26 Ionized Calcium 1.3 mmol/L (1.1-1.4) 02/24/25 18:26 O2 Delivery Device Nc 02/24/25 18:26 O2 Liters/Min 3.0 % 02/24/25 18:26 FiO2 32.0 % 02/24/25 18:26 Transportation Dispatch Manager ID glc 02/24/25 18:26 Sodium 136 mmol/L (136-145) 02/24/25 16:43 Potassium 8.3 mmol/L (3.5-5.1) H* 02/24/25 18:07 Chloride 103 mmol/L (98-107) 02/24/25 16:43 Carbon Dioxide 25 mmol/L (22-29) 02/24/25 16:43 Anion Gap 15.3 (5-19) 02/24/25 16:43 BUN 41 mg/dL (8-23) H 02/24/25 16:43 Creatinine 1.6 mg/dL (0.7-1.2) H 02/24/25 16:43 GFR Calculation Not Reportable 02/24/25 16:43 Glucose 87 mg/dL (65-115) 02/24/25 16:43 POC Glucose 151 mg/dL (70-110) H 02/24/25 19:08 Calculated Osmolality 291 mOsm/kg (285-295) 02/24/25 16:43 Calcium 9.0 mg/dL (8.5-10.5) 02/24/25 16:43 Total Bilirubin 0.9 mg/dL (0.15-1.2) 02/24/25 16:43 AST 9 U/L (0-40) 02/24/25 16:43 ALT < 5 U/L (0-41) 02/24/25 16:43 Alkaline Phosphatase 69 U/L (40-130) 02/24/25 16:43 NT-Pro-B Natriuret Pep 92116 pg/mL (0-450) H 02/24/25 16:43 Total Protein 7.3 g/dL (6.6-8.7) 02/24/25 16:43 Albumin 3.6 g/dL (3.5-5.2) 02/24/25 16:43 Globulin 3.7 g/dL (1.3-4.6) 02/24/25 16:43 Influenza A (PCR) Negative (Negative) 02/24/25 18:38 Influenza Type B (PCR) Negative (Negative) 02/24/25 18:38 RSV (PCR) Negative (Negative) 02/24/25 18:38 SARS-CoV-2 (PCR) Negative (Negative) 02/24/25 18:38 Discharge Plan Discharge Patient Disposition: Admitted As Inpatient Admit Provider: Jose Solomon Clinical Impression: Acute hypoxemic respiratory failure, Bilateral pleural effusion, Acute hypercapnic respiratory failure, Acute hyperkalemia, Acute diastolic (congestive) heart failure Condition: Stable Discharge Diet: As Directed Coding Level of Care Code ED Deposition Operator for Bernabe Mathew
[2025-02-24 17:07] LABS: Hematocrit 37.4 % (37-53); Hemoglobin 10.30 g/dL (11.27-16.99); Mean Corpuscular HGB Conc 27.5 g/dL (30-55); Mean Corpuscular Hemoglobin 23.8 pg (27-33); Mean Corpuscular Volume 86.4 fl (82-101); Nucleated Red Blood Cells % 0 %; Platelet Count 201 10^3/cmm (157-399); Red Blood Count 4.33 10^6/uL (3.85-5.65); White Blood Count 5.55 10^3/uL (3.29-11.43)
[2025-02-24 17:35] LABS: Alanine Aminotransferase < 5 U/L (0-41); Albumin Level 3.6 g/dL (3.5-5.2); Alkaline Phosphatase 69 U/L (40-130); Anion Gap 15.3 (5-19); Aspartate Amino Transferase 9 U/L (0-40); Blood Urea Nitrogen 41 mg/dL (8-23); Calcium 9.0 mg/dL (8.5-10.5); Carbon Dioxide 25 mmol/L (22-29); Chloride 103 mmol/L (98-107); Globulin 3.7 g/dL (1.3-4.6); Glucose 87 mg/dL (65-115); NT Pro B Type Natriuretic Pept 15420 pg/mL (0-450); Osmolality Calculated 291 mOsm/kg (285-295); Sodium 136 mmol/L (136-145); Total Protein 7.3 g/dL (6.6-8.7)
[2025-02-24] MEDS: calcium gluconate 0.1 gm/mL 10% SDV 10mL 1 GM IVP (18:05)
[2025-02-24 18:37] LABS: ABG PH Result 7.28 (7.35-7.45); Alveolar-Arterial Oxygen Gradi 11.5 mmHg (5-10); Arterial Blood Gas Hematocrit 33.2 % (42-52); Blood Gas Allen Test Pos; Blood Gas LPM 3.0 %; Blood Gas Operator Identificat glc; Blood Gas Sample Site Radial, right; Blood Gas Sample Type Arterial; Carboxyhemoglobin 1.9 %THgb (0.4-20.1); Glucose Level-ABG 147.0 mg/dL (70-115); HCO3 ABG 29.0 mmol/L (22-26); Ionized Calcium Level - ABG 1.3 mmol/L (1.1-1.4); Methemoglobin 1.0 % (0.4-1.5); Oxygen Saturation ABG 90.7; PO2 ABG 67.9 mmHg (80.0-100.0); PO2 FiO2 Ratio Arterial Blood 212; Potassium Level - ABG 7.2 mmol/L (3.5-5.0); Sodium Level - ABG 141.0 mmol/L (131-143)
[2025-02-24 18:59] LABS: Potassium 8.3 mmol/L (3.5-5.1)
[2025-02-24 19:05] LABS: ABG PCO2 61.7 mmHg (35-45)
[2025-02-24] MEDS: insulin regular-human 100 units/1 mL 10 UNIT IVP ×2 (19:12→20:23)
[2025-02-24] MEDS: FUROsemide 10 mg/mL SDV 4mL 40 MG IVP (19:12)
--- NOTE | 2025-02-24 19:12 | ECG_ITS ---
[facility] Date: 2025-02-24 Pat Name: Nate Barrera Department: Room: Gender: Male Methods Analyst: : 1950 Requested By: Sahra Lyles Order Number: [id number] Jason MD: Ashly Gomez M.D. Measurements Intervals [place] Rate: 74 P: 0 DC: 0 QRS: 82 QRSD: 138 T: 84 QT: 380 QTc: 423 Interpretive Statements ATRIAL FIBRILLATION INTRAVENTRICULAR CONDUCTION DELAY [130+ ms QRS DURATION] SEPTAL MYOCARDIAL INFARCTION , OF INDETERMINATE AGE [40+ ms Q WAVE IN V1/V2] Compared to ECG 02/24/2025 16:45:02 Myocardial infarct finding now present Indeterminate axis no longer present ST (T wave) deviation no longer present Electronically Signed On 02-26-2025 20:08:44 BIOINFORMATICS ENGINEER by Ashly Gomez M.D. [id number]
[2025-02-24 19:18] LABS: Respiratory Syncytial Virus Ce NEGATIVE (Negative); SARS-CoV-2 PCR NEGATIVE (Negative)
[2025-02-24] MEDS: calcium gluconate 0.9% NaCL 1 GM/50 ML PREMIX IV (19:33)
--- NOTE | 2025-02-24 20:06 | PC.NURSE ---
This nurse and Nurse Komal walked in to pts room and the pt was sitting on the side of the bed with the dr. Pts Bipap, O2 monitor, and Bp cuff was taken off by the dr and pt was very unsteady and looked confused. This nurse and nurse komal laid the pt back in bed and connected all of his monitors. The pt was satting 65% and was very hypercapnic and his lips were blue. Pt was hooked back up to Bipap and pts O2 resolved to 98%.
--- NOTE | 2025-02-24 20:17 | PM.HP ---
Providers/Chief Complaint Primary Care Provider: Marisol Santos DO Chief Complaint: sob History of Present Illness Nate Barrera is a 75 year old male with history significant for HFpEF, Atrial fibrillation, HTN, and chronic bilateral pleural effusions who presents with complaints of shortness of breath. History gathering is somewhat challenging as the patient is currently maintained on Bipap. He states his shortness of breath has been present for two years but when transitioning out of bed today, he felt his breathing was particularly bad so he felt it prudent to seek medical attention. At the bedside, he has present his current medications which does not include potassium supplementation. He tells me the three medications present are the only medications he takes(Ditiazem, spironolactone, eliquis). Attempts made to contact spouse for further history were not successful. Medications/Allergies Home Medications ?Medication ?Instructions ?Recorded ?Confirmed ?Last Taken ?Type furosemide 40 mg tablet 40 mg PO BID 11/18/22 12/16/22 Unknown History potassium chloride 20 mEq 20 meq PO BID 11/18/22 12/16/22 Unknown History tablet,extended release albuterol sulfate 90 mcg/actuation 1 inh inhalation QID PRN shortness 11/25/22 12/16/22 Unknown Rx aerosol inhaler (Ventolin HFA) of breath or wheezing #8.5 grams apixaban 5 mg tablet (Eliquis) 5 mg PO BID #60 tabs 12/30/22 12/30/22 Unknown Rx metoprolol tartrate 50 mg tablet 50 mg PO BID 12/30/22 Unknown History naproxen sodium 220 mg tablet 220 mg PO BID PRN 12/30/22 Unknown History (Aleve) fluticasone furoate 50 1 inh inhalation DAILY #60 ea 07/15/23 Unknown Rx mcg-vilanterol 25 mcg/dose inhalation powder (Breo Ellipta) Allergies Allergy/AdvReac Type Severity Reaction Status Date / Time mold Allergy Unknown Unknown Verified 12/30/22 10:10 ragweed pollen Allergy Unknown Unknown Verified 12/30/22 10:10 PFSH Acute PFSH: Medical History (Updated 02/24/25 @ 18:46 by KALIN Arzola) Congestive heart failure Atrial fibrillation Surgical History S/P tonsillectomy Family History Brother Stroke 71 yr old Family/Other Cancer Maternal side Social History Smoking and tobacco/nicotine status: never used tobacco/nicotine Alcohol intake: current Alcohol intake frequency: holidays/special occasions only Substance/Drug Use: never Vitals/I&O/Wt Last Vital Signs Temp 97.9 F 02/24/25 16:28 Pulse 94 02/24/25 20:00 Resp 28 H 02/24/25 19:59 BP 139/82 02/24/25 20:00 Pulse Ox 100 02/24/25 20:00 O2 Del Method BiPAP 02/24/25 20:00 O2 Flow Rate 3 02/24/25 18:49 FiO2 45 02/24/25 19:03 02/24/25 02/24/25 02/24/25 06:59 14:59 22:59 Intake Total Balance Weight last 48 hrs Weight 69.4 kg Physical Exam Const: COMMON NORMALS: no acute distress OTHER: frail appearing Resp: OTHER: diminished breath sounds while on Bipap Cardio: OTHER: Regular rate, irregularly irregular. No MRG Extremity: OTHER: Tophi noted to the right olecranon process Skin: OTHER: Left lower extremity is wrapped. Dressing removed shows light green prurulence, no foul order. Shallow ulcer present with red base Data 02/24/25 16:43 02/24/25 20:42 A&P Assessment and plan 1. Acute diastolic (congestive) heart failure: 2. Acute hyperkalemia: 3. Acute hypercapnic respiratory failure: 4. Bilateral pleural effusion: 5. Acute hypoxemic respiratory failure: 6. Atrial fibrillation: Plan: Hyperkalemia - ED has provided furosemide, albuterol, insulin/dextrose, sodium bicarb, kayexalate - Will follow potassium levels - Avoid NSAID, potassium supplementations - Hold spironolactone Acute hypercapnic and hypoxic respiratory failure - Placed on Bipap with improved pH - Wean as tolerated Normocytic anemia - Check occult stool and iron studies ?RUBY vs CKD - Unclear baseline creatinine - Recheck chemistry in the AM - Otherwise as above Acute exacerbation of HFpEF, EF 55-60% - With Pro-BNP of >15k noted - Continue diuresis with 40mg IV lasix BID. May need adjustment - Daily weights - Strict I&Os Atrial fibrillation - Continue Eliquis PDMP PDMP Reviewed: Not Reviewed Attestations Medical Necessity Statement*: Patient is anticipated to require greater than 2 midnights for management of hyperkalemia, respiratory failure, and acute HFpEF Coding Level of Care Code Acute Code for Chg Fwd Diagnoses Acute diastolic (congestive) heart failure I50.31 Acute hyperkalemia E87.5 Acute hypercapnic respiratory failure J96.02 Bilateral pleural effusion J90 Acute hypoxemic respiratory failure J96.01 Atrial fibrillation I48.91
[2025-02-24 21:07] LABS: ABG PCO2 57.2 mmHg (35-45); ABG PH Result 7.32 (7.35-7.45); Arterial Blood Gas Hematocrit 31.1 % (42-52); Blood Gas Sample Site Brachial, right; Blood Gas Sample Type Arterial; HCO3 ABG 29.7 mmol/L (22-26); PEEP 8.0 cmH20; PO2 ABG 106.0 mmHg (80.0-100.0); PO2 FiO2 Ratio Arterial Blood 235
[2025-02-24 21:08] LABS: Anion Gap 13.0 (5-19); Blood Urea Nitrogen 40 mg/dL (8-23); Calcium 9.5 mg/dL (8.5-10.5); Carbon Dioxide 31 mmol/L (22-29); Chloride 102 mmol/L (98-107); Glucose 119 mg/dL (65-115); Osmolality Calculated 301 mOsm/kg (285-295); Potassium 6.0 mmol/L (3.5-5.1); Sodium 140 mmol/L (136-145)
[2025-02-25] VITALS (56 sets, daily range): BP systolic 113–180; BP diastolic 50–77; PULSE 76–109; RESP 12–69; TEMP 36.3–36.8; O2SAT 91–100
[2025-02-25 01:28] LABS: Ferritin 17 ng/mL (30-400); Iron 11 ug/dL (59-158); Total Iron Binding Capacity 311 mcg/dl; Unsaturated Iron Binding 300 ug/dL (112-347)
[2025-02-25 04:31] LABS: Hematocrit 38.8 % (37-53); Hemoglobin 10.70 g/dL (11.27-16.99); Mean Corpuscular HGB Conc 27.6 g/dL (30-55); Mean Corpuscular Hemoglobin 23.9 pg (27-33); Mean Corpuscular Volume 86.6 fl (82-101); Nucleated Red Blood Cells % 0.4 %; Platelet Count 193 10^3/cmm (157-399); Red Blood Count 4.48 10^6/uL (3.85-5.65); White Blood Count 7.04 10^3/uL (3.29-11.43)
[2025-02-25 04:53] LABS: Anion Gap 10.0 (5-19); Blood Urea Nitrogen 40 mg/dL (8-23); Calcium 9.3 mg/dL (8.5-10.5); Carbon Dioxide 34 mmol/L (22-29); Chloride 102 mmol/L (98-107); Glucose 91 mg/dL (65-115); Osmolality Calculated 297 mOsm/kg (285-295); Sodium 139 mmol/L (136-145)
[2025-02-25 05:18] LABS: Potassium 7.0 mmol/L (3.5-5.1)
[2025-02-25 09:53] LABS: Potassium 7.3 mmol/L (3.5-5.1)
[2025-02-25] MEDS: FUROsemide 10 mg/mL SDV 10mL 60 MG IVP ×2 (10:18→20:15)
[2025-02-25] MEDS: insulin regular-human 100 units/1 mL 10 UNIT IVP (12:13)
[2025-02-25] MEDS: calcium gluconate 0.1 gm/mL 10% SDV 10mL 1 GM IVP (12:14)
--- NOTE | 2025-02-25 12:35 | PM.CONSULT ---
Providers/Reason For Consult Consulting Physician/Specialty*: clayton Reason for Consult*: ruby Attending Physician: Fahad Adair Primary Care Provider: Marisol Santos DO History of Present Illness History of Present Illness Nate Barrera is a 75 year old male Patient is a 75-year-old male with past medical history of CHF A-fib, hypertension, bilateral pleural effusions, presented to the emergency department due to shortness of breath. Lab data showed potassium of 6.0 creatinine of 1.4. Patient required BiPAP in the ER he was thought to be in CHF exacerbation and was started on IV diuretics. Patient potassium has further gotten worse to 7.3 and nephrology consultation was called. Patient so far has received medical management including calcium, insulin, Kayexalate and also received 1 dose of 80 mg IV Lasix. Awaiting repeat potassium. Review of Systems Narrative: negative Medications/Allergies Home Medications ?Medication ?Instructions ?Recorded ?Confirmed ?Last Taken ?Type albuterol sulfate 90 mcg/actuation 1 inh inhalation QID PRN shortness 11/25/22 02/25/25 Unknown Rx aerosol inhaler (Ventolin HFA) of breath or wheezing #8.5 grams apixaban 5 mg tablet (Eliquis) 5 mg PO BID #60 tabs 12/30/22 02/25/25 02/24/25 08:00 Rx naproxen sodium 220 mg tablet 220 mg PO BID PRN Fever Or Pain 12/30/22 02/25/25 Unknown History (Aleve) diltiazem HCl 180 mg capsule,24 180 mg PO DAILY 02/25/25 02/25/25 02/24/25 08:00 History hr,extended release (Tiadylt ER) spironolactone 50 mg tablet 50 mg PO DAILY 02/25/25 02/25/25 02/24/25 09:00 History Allergies Allergy/AdvReac Type Severity Reaction Status Date / Time mold Allergy Unknown Unknown Verified 12/30/22 10:10 ragweed pollen Allergy Unknown Unknown Verified 12/30/22 10:10 Current Medications Generic Name Dose Route Start Last Admin Trade Name Freq PRN Reason Stop Dose Admin Albuterol/Ipratropium 3 ml 02/25/25 08:00 02/25/25 08:39 Ipratropium-Albuterol 3 Ml Neb INHALATION 3 ml Q6H.RESP ALYSON Administration Apixaban 5 mg 02/25/25 05:00 02/25/25 05:13 Apixaban 5 Mg Tablet PO 5 mg BID ALYSON Administration Furosemide 60 mg 02/25/25 09:15 02/25/25 10:18 Furosemide 10 Mg/Ml Sdv 10ml IVP 60 mg Q12H ALYSON Administration PFSH Acute PFSH: Medical History (Updated 02/26/25 @ 03:35 by Laury Baker MD) Congestive heart failure Atrial fibrillation Surgical History S/P tonsillectomy Family History Brother Stroke 71 yr old Family/Other Cancer Maternal side Social History Smoking and tobacco/nicotine status: never used tobacco/nicotine Alcohol intake: current Alcohol intake frequency: holidays/special occasions only Substance/Drug Use: never Vitals/I&O/Wt Last Vital Signs Temp 98.0 F 02/25/25 08:30 Pulse 80 02/25/25 11:30 Resp 69 H 02/25/25 11:30 BP 143/72 02/25/25 11:30 Pulse Ox 96 02/25/25 10:00 O2 Del Method Nasal Cannula 02/25/25 08:39 O2 Flow Rate 2 02/25/25 08:39 FiO2 35 02/25/25 05:00 02/24/25 02/25/25 02/25/25 22:59 06:59 14:59 Intake Total 325 / 325 605 / 930 Output Total 450 / 450 Balance 325 / 325 155 / 480 Weight last 48 hrs Weight 66 kg Weight 66 kg Weight 66 kg Weight 69.4 kg Physical Exam Narrative: awake , alert , no distress PEERLA no jvd s1s2 irregualr lungs clear abd soft , non tender ext no edema no skin rash Urinary Catheter Management: Walter: Cath Placed During This Visit: yes Reason for Continuing Indwelling Catheter: Accurate Measurement of Urinary Output in Critically Ill Patients Urinary Catheter Date of Insertion: 02/24/25 Urinary Catheter Time of Insertion: 20:35 Data 02/25/25 04:22 02/25/25 23:30 A&P Assessment and plan 1. Acute hyperkalemia: 2. RUBY (acute kidney injury): Plan: 1. Acute kidney injury: No recent baseline labs available. Creatinine in 2022 was 1.5. Most likely his baseline is in the mid 1 range. Will continue to monitor. Will check renal ultrasound and urine analysis. And urine electrolytes. 2. Severe hyperkalemia: Patient was taking potassium supplements and spironolactone at home as well as as needed naproxen - Awaiting repeat potassium status post medical management 3. CHF exacerbation status post IV diuretics 4. History of A-fib, on chronic anticoagulation Patient evaluated using audiovisual cart. Time spent 40 minutes. PDMP PDMP Reviewed: Not Reviewed Consult Attestations Medical Necessity Statement: per [facility] Coding Level of Care Code Acute Code for Chg Fwd Diagnoses Acute hyperkalemia E87.5 RUBY (acute kidney injury) N17.9
[2025-02-25 13:39] LABS: Potassium 6.0 mmol/L (3.5-5.1)
[2025-02-25 17:56] LABS: Potassium 5.7 mmol/L (3.5-5.1)
--- NOTE | 2025-02-25 18:56 | P.PN_ITS ---
Subjective 2 Subjective: He is not happy about being in the hospital, having to answer many questions about himself. Vitals/I&O/Wt Last Vital Signs Temp 98.0 F 02/25/25 08:30 Pulse 109 H 02/25/25 18:00 Resp 22 H 02/25/25 17:30 BP 137/66 02/25/25 18:00 Pulse Ox 91 02/25/25 18:00 O2 Del Method Nasal Cannula 02/25/25 14:20 O2 Flow Rate 2 02/25/25 14:20 FiO2 35 02/25/25 05:00 02/25/25 02/25/25 02/25/25 06:59 14:59 22:59 Intake Total 605 / 930 240 / 240 240 / 480 Output Total 450 / 450 2400 / 2400 Balance 155 / 480 240 / 240 -2160 / -1920 Weight last 48 hrs Weight 66 kg Weight 66 kg Weight 66 kg Weight 69.4 kg Physical Exam 2 Narrative: He is joined by his son and daughter Const: COMMON NORMALS: alert GENERAL APPEARANCE: cooperative O RIENTATION/CONSCIOUSNESS: Yes awake HENMT: COMMON NORMALS: oropharynx normal Neck/C-Spine: COMMON NORMALS: no JVD Resp: COMMON NORMALS: normal respiratory effort and clear to auscultation bilaterally AUSCULTATION: clear to auscultation bilaterally Cardio: COMMON NORMALS: no JVD, regular rhythm, S1 normal heart sound present, S2 normal heart sound present and No murmurs present (Cardio) RHYTHM: regular rhythm HEART SOUNDS: S1 normal heart sound present and S2 normal heart sound present GI: COMMON NORMALS: Normal to inspection, nondistended, normoactive bowel sounds present, Soft to palpation and non-tender PALPATION: Yes Soft to palpation Extremity: COMMON NORMALS: no joint enlargement and no pedal edema Neuro: COMMON NORMALS: moves all extremities SENSORIUM/ORIENTATION: Yes alert Urinary Catheter Management: Walter: Cath Placed During This Visit: yes Reason for Continuing Indwelling Catheter: Accurate Measurement of Urinary Output in Critically Ill Patients Urinary Catheter Date of Insertion: 02/24/25 Urinary Catheter Time of Insertion: 20:35 Data 02/26/25 05:37 02/26/25 05:37 A&P Assessment and plan 1. Acute diastolic (congestive) heart failure: 2. Acute hyperkalemia: 3. Acute hypercapnic respiratory failure: 4. Bilateral pleural effusion: 5. Acute hypoxemic respiratory failure: 6. Persistent atrial fibrillation: Plan: Hyperkalemia Severe acute hyperkalemia. Further hyperkalemia noted potassium 7, despite receiving treatment. Given insulin dextrose, Lasix, Kayexalate repeated, additional calcium gluconate given. Discussed with boomboat operator, appreciate consultation. Repeat potassium requested. Consideration of dialysis with persistent hyperkalemia. - Avoid NSAID, potassium supplementations - Hold spironolactone Acute hypercapnic and hypoxic respiratory failure Weaned off BiPAP overnight. Acute metabolic encephalopathy present on admission resolved. Nasal cannula oxygen support as needed. Target O2 saturation 88-92%. Discussed with RT. Discussed with nursing, case management. Acute exacerbation of HFpEF, EF 55-60% Intake and output reviewed. In negative balance, but inadequate diuresis initially. Lasix dose increased to 60 mg every 12. Monitor for risk of electrolyte deficiency, hypokalemia with IV diuretics. Monitor on telemetry. - With Pro-BNP of >15k noted - Daily weights - Strict I&Os Normocytic anemia Reviewed blood counts. Repeat CBC. - Check occult stool and iron studies ?RUBY vs CKD - Unclear baseline creatinine - Recheck chemistry in the AM - Otherwise as above Atrial fibrillation - Continue Eliquis Disposition planning: Patient is living at home, previously on hospice, but revoked hospice due to preferring not to have people coming over to his house, has been taking care of his who is on hospice, however, with current illness, concern for functional decline, further discharge planning will be needed. Discussed with case management, who will further discuss with his children with regards to options for postdischarge care and support. USP may be something to consider, although he likely may decline. PDMP PDMP Reviewed: Not Reviewed Attestations 2 Medical Necessity Statement*: Continue admission for assessment management of severe acute hyperkalemia, acute diastolic heart failure, improving respiratory failure. Post discharge planning and arrangements. Coding Level of Care Code Critical Care >/= 30 minutes Critical care time (in minutes): 35 The high probability of a clinically significant, sudden or life threatening deterioration, as referenced in this documentation, required my full and direct attention, intervention and personal management. The critical care time shown is in addition to time spent performing any reported separately billable procedures and includes the following: [x] Data and vital sign review and interpretation [x ] Patient assessment, examination and intervention [x] Medication orders and management [x] Patient/Family updates as able [x] Care Coordination and Documentation. Diagnoses Acute diastolic (congestive) heart failure I50.31 Acute hyperkalemia E87.5 Acute hypercapnic respiratory failure J96.02 Bilateral pleural effusion J90 Acute hypoxemic respiratory failure J96.01 Persistent atrial fibrillation I48.19 Atrial fibrillation type: unspecified persistent
[2025-02-25 23:58] LABS: Alanine Aminotransferase 6 U/L (0-41); Albumin Level 3.4 g/dL (3.5-5.2); Alkaline Phosphatase 64 U/L (40-130); Anion Gap 10.8 (5-19); Aspartate Amino Transferase 10 U/L (0-40); Blood Urea Nitrogen 35 mg/dL (8-23); Calcium 8.6 mg/dL (8.5-10.5); Carbon Dioxide 37 mmol/L (22-29); Chloride 96 mmol/L (98-107); Globulin 3.0 g/dL (1.3-4.6); Glucose 96 mg/dL (65-115); Osmolality Calculated 294 mOsm/kg (285-295); Potassium 5.8 mmol/L (3.5-5.1); Sodium 138 mmol/L (136-145); Total Protein 6.4 g/dL (6.6-8.7)
[2025-02-26] VITALS (27 sets, daily range): BP systolic 111–136; BP diastolic 50–88; PULSE 64–103; RESP 16–18; TEMP 36.3–36.7; O2SAT 86–100
--- NOTE | 2025-02-26 03:37 | US_ITS ---
WS: [id number] RENAL ULTRASOUND HISTORY: paola COMPARISON: None available. TECHNIQUE: 2-D and color Doppler imaging of the kidney submitted. Right kidney: 9.7 cm x 5.3 cm x 6.1 cm. Cortex: 1.3 cm Normal echogenicity with no hydronephrosis or mass. Left kidney: 9.2 cm x 4.5 cm x 4.6 cm. Cortex: 1.6 cm Normal echogenicity with no hydronephrosis or mass. Aorta: Not visualized. Urinary Bladder: Nondistended. Walter catheter balloon present in the bladder. US/US renal BI* [id number] IMPRESSION: Normal renal ultrasound.
[2025-02-26] MEDS: dilTIAZem ER (24HR) 180 mg Capsule PO (04:08)
[2025-02-26 04:20] LABS: Glucose Urine UA Negative (Normal); Nitrate Urine Negative (Negative); Specific Gravity, Urine 1.008 (1.005-1.030)
[2025-02-26 04:25] LABS: Add Urine Microscopic? YES
[2025-02-26 06:06] LABS: Hematocrit 37.6 % (37-53); Hemoglobin 10.70 g/dL (11.27-16.99); Mean Corpuscular HGB Conc 28.5 g/dL (30-55); Mean Corpuscular Hemoglobin 23.7 pg (27-33); Mean Corpuscular Volume 83.4 fl (82-101); Nucleated Red Blood Cells % 0 %; Platelet Count 184 10^3/cmm (157-399); Red Blood Count 4.51 10^6/uL (3.85-5.65); White Blood Count 6.74 10^3/uL (3.29-11.43)
[2025-02-26 06:20] LABS: Anion Gap 12.2 (5-19); Blood Urea Nitrogen 34 mg/dL (8-23); Calcium 8.8 mg/dL (8.5-10.5); Carbon Dioxide 37 mmol/L (22-29); Chloride 95 mmol/L (98-107); Glucose 88 mg/dL (65-115); Osmolality Calculated 293 mOsm/kg (285-295); Potassium 6.2 mmol/L (3.5-5.1); Sodium 138 mmol/L (136-145)
--- NOTE | 2025-02-26 06:35 | PC.NURSE ---
Transferred patient to [facility] room 278. All belongings taken with patient. Patient voicing no complaints. [facility] staff at bedside.
[2025-02-26] MEDS: FUROsemide 10 mg/mL SDV 10mL 60 MG IVP ×2 (09:28→20:15)
--- NOTE | 2025-02-26 10:12 | P.PN_ITS ---
Subjective 2 Subjective: Patient seen and examined, currently requiring 1 L of oxygen. Discussed plan of care with family in the room and they want him to be discharged home as soon as possible once his labs and vitals are stable however discussed with them aboutIs RUBY and also worsening potassium which is 6.2 again today. Medications: Reviewed: Yes Vitals/I&O/Wt Last Vital Signs Temp 97.3 F L 02/26/25 07:12 Pulse 88 02/26/25 08:43 Resp 18 02/26/25 08:00 BP 116/57 02/26/25 07:12 Pulse Ox 98 02/26/25 08:00 O2 Del Method Nasal Cannula 02/26/25 08:00 O2 Flow Rate 1 02/26/25 08:00 FiO2 35 02/25/25 05:00 02/25/25 02/26/25 02/26/25 22:59 06:59 14:59 Intake Total 240 / 480 360 / 360 Output Total 2400 / 2400 1750 / 4150 Balance -2160 / -1920 -1750 / -3670 360 / 360 Weight last 48 hrs Weight 64.5 kg Weight 66 kg Weight 66 kg Weight 66 kg Weight 69.4 kg Physical Exam 2 Narrative: awake , alert , no distress PEERLA no jvd s1s2 irregualr keyla present lungs clear abd soft , non tender ext no edema no skin rash Urinary Catheter Management: Walter: Cath Placed During This Visit: yes Reason for Continuing Indwelling Catheter: Accurate Measurement of Urinary Output in Critically Ill Patients Urinary Catheter Date of Insertion: 02/24/25 Urinary Catheter Time of Insertion: 20:35 Data 02/26/25 05:37 02/26/25 05:37 A&P Assessment and plan 1. Acute hyperkalemia: 2. RUBY (acute kidney injury): Plan: Hyperkalemia -Patient has had furosemide, albuterol, insulin/dextrose, sodium bicarb, kayexalate -Potassium again 6.2 today. Getting repeat dose of Lasix after getting a.m. dose of Lasix, plan to repeat BMP at 1 PM. Creatinine 1.6 today which is same as yesterday. - Avoid NSAID, potassium supplementations - Hold spironolactone - Nephrology following Acute hypercapnic and hypoxic respiratory failure - Placed on Bipap with improved pH -Weaned off, now on 1 L of oxygen. Normocytic anemia -Appears chronic secondary to his CKD ?RUBY vs CKD - Unclear baseline creatinine - Recheck chemistry in the AM - Otherwise as above Acute exacerbation of HFpEF, EF 55-60% - With Pro-BNP of >15k noted -Normal Lasix 60 mg IV twice daily. - Daily weights - Strict I&Os Atrial fibrillation - Continue Eliquis DVT prophylaxis, already on Eliquis Discussed CODE STATUS with family and patient does not want any heroic measures, will change CODE STATUS from full code to DNR/DNI PDMP PDMP Reviewed: Not Reviewed Attestations 2 Medical Necessity Statement*: Needs to stay in the hospital for more than 2 midnights given hyperkalemia and CHF Coding Level of Care Code Acute Code for Chg Fwd Diagnoses Acute hyperkalemia E87.5 RUBY (acute kidney injury) N17.9
[2025-02-26] MEDS: FUROsemide 10 mg/mL SDV 10mL 80 MG IVP (10:31)
--- NOTE | 2025-02-26 10:36 | P.PN_ITS ---
Subjective 2 Subjective: no new c/o Medications: Reviewed: Yes Vitals/I&O/Wt Last Vital Signs Temp 97.3 F L 02/26/25 07:12 Pulse 88 02/26/25 08:43 Resp 18 02/26/25 08:00 BP 116/57 02/26/25 07:12 Pulse Ox 98 02/26/25 08:00 O2 Del Method Nasal Cannula 02/26/25 08:00 O2 Flow Rate 1 02/26/25 08:00 FiO2 35 02/25/25 05:00 02/25/25 02/26/25 02/26/25 22:59 06:59 14:59 Intake Total 240 / 480 360 / 360 Output Total 2400 / 2400 1750 / 4150 Balance -2160 / -1920 -1750 / -3670 360 / 360 Weight last 48 hrs Weight 64.5 kg Weight 66 kg Weight 66 kg Weight 66 kg Weight 69.4 kg Physical Exam 2 Narrative: awake , alert , no distress PEERLA no jvd s1s2 irregualr lungs clear abd soft , non tender ext no edema no skin rash Urinary Catheter Management: Walter: Cath Placed During This Visit: yes Reason for Continuing Indwelling Catheter: Accurate Measurement of Urinary Output in Critically Ill Patients Urinary Catheter Date of Insertion: 02/24/25 Urinary Catheter Time of Insertion: 20:35 Data 02/26/25 05:37 02/26/25 13:57 A&P Assessment and plan 1. Acute hyperkalemia: 2. RUBY (acute kidney injury): Plan: 1. Acute kidney injury: No recent baseline labs available. Creatinine in 2022 was 1.5. Most likely his baseline is in the mid 1 range. Will continue to monitor. renal US normal and UA - no protein and no blood 2. Severe hyperkalemia:rebound hyperkalemia noted, Patient was taking potassium supplements and spironolactone at home as well as as needed naproxen - ordered lokelma and lasix today 3. CHF exacerbation status post IV diuretics 4. History of A-fib, on chronic anticoagulation Patient evaluated using audiovisual cart. Time spent 40 minutes. PDMP PDMP Reviewed: Not Reviewed Attestations 2 Medical Necessity Statement*: per [facility] Coding Level of Care Code Acute Code for Chg Fwd Diagnoses Acute hyperkalemia E87.5 RUBY (acute kidney injury) N17.9
[2025-02-26 14:27] LABS: Anion Gap 13.0 (5-19); Blood Urea Nitrogen 35 mg/dL (8-23); Calcium 8.5 mg/dL (8.5-10.5); Carbon Dioxide 37 mmol/L (22-29); Chloride 92 mmol/L (98-107); Glucose 123 mg/dL (65-115); Osmolality Calculated 293 mOsm/kg (285-295); Potassium 5.0 mmol/L (3.5-5.1); Sodium 137 mmol/L (136-145)
[2025-02-27] VITALS (11 sets, daily range): BP systolic 103–136; BP diastolic 56–68; PULSE 75–97; RESP 16–18; TEMP 36.3–36.8; O2SAT 90–96
[2025-02-27] MEDS: dilTIAZem ER (24HR) 180 mg Capsule PO (04:33)
[2025-02-27 08:12] LABS: Anion Gap 8.2 (5-19); Blood Urea Nitrogen 33 mg/dL (8-23); Calcium 8.2 mg/dL (8.5-10.5); Chloride 88 mmol/L (98-107); Glucose 102 mg/dL (65-115); Osmolality Calculated 283 mOsm/kg (285-295); Potassium 5.2 mmol/L (3.5-5.1); Sodium 133 mmol/L (136-145)
[2025-02-27 08:17] LABS: Carbon Dioxide 42 mmol/L (22-29)
[2025-02-27] MEDS: FUROsemide 10 mg/mL SDV 10mL 60 MG IVP (09:05)
[2025-02-27] MEDS: cefTRIAXone 1,000 mg SDV 1000 MG IVP (10:43)
--- NOTE | 2025-02-27 13:24 | P.PN_ITS ---
Subjective 2 Subjective: He is not happy about being in the hospital, having to answer many questions about himself. 02/27 patient seen and examined, resting comfortably. Discussed plan of care with family in the room Medications: Reviewed: Yes Vitals/I&O/Wt Last Vital Signs Temp 97.4 F L 02/27/25 11:32 Pulse 75 02/27/25 11:32 Resp 18 02/27/25 11:32 BP 103/56 02/27/25 11:32 Pulse Ox 95 02/27/25 11:32 O2 Del Method Nasal Cannula 02/27/25 11:32 O2 Flow Rate 1 02/27/25 08:00 FiO2 35 02/25/25 05:00 02/26/25 02/27/25 02/27/25 22:59 06:59 14:59 Intake Total 840 / 1680 120 / 1800 480 / 480 Output Total 1600 / 2600 1100 / 3700 Balance -760 / -920 -980 / -1900 480 / 480 Weight last 48 hrs Weight 66.224 kg Weight 64.5 kg Physical Exam 2 Narrative: awake , alert , no distress PEERLA no jvd s1s2 irregualr keyla present lungs clear abd soft , non tender ext no edema no skin rash Urinary Catheter Management: Walter: Cath Placed During This Visit: yes Reason for Continuing Indwelling Catheter: Accurate Measurement of Urinary Output in Critically Ill Patients Urinary Catheter Date of Insertion: 02/24/25 Urinary Catheter Time of Insertion: 20:35 Data 02/26/25 05:37 02/27/25 07:33 Micro: Microbiology 02/26/25 04:05 Urine Culture - Preliminary Urine,Clean Catch A&P Assessment and plan 1. Acute diastolic (congestive) heart failure: 2. Acute hyperkalemia: 3. Acute hypercapnic respiratory failure: 4. Bilateral pleural effusion: 5. Acute hypoxemic respiratory failure: 6. Persistent atrial fibrillation: Plan: Hyperkalemia Severe acute hyperkalemia. Now improving. Potassium 5.2 today. Kayexalate ordered. Nephrology following - Patient was taking potassium supplements and Aldactone at home as well as as needed naproxen. - Avoid NSAID, potassium supplementations - Hold spironolactone Acute hypercapnic and hypoxic respiratory failure Weaned off BiPAP overnight. Acute metabolic encephalopathy present on admission resolved. Nasal cannula oxygen support as needed. Target O2 saturation 88-92%. Discussed with RT. Discussed with nursing, case management. Acute exacerbation of HFpEF, EF 55-60% Intake and output reviewed. In negative balance, but inadequate diuresis initially. Lasix dose increased to 60 mg every 12. Monitor on telemetry. - With Pro-BNP of >15k noted - Daily weights - Strict I&Os Normocytic anemia Reviewed blood counts. Repeat CBC. - Check occult stool and iron studies ?RUBY vs CKD - Unclear baseline creatinine - Recheck chemistry in the AM - Otherwise as above Atrial fibrillation - Continue Eliquis UTI Started Rocephin, urine cultures pending. Disposition planning: Patient is living at home, previously on hospice, initially revoked hospice however now has acute to go back to her home with hospice. Urine cultures pending, conversation for now. Likely will discharge tomorrow home with hospice. Patient's family is here, aware. Discussed plan of care with them PDMP PDMP Reviewed: Not Reviewed Attestations 2 Medical Necessity Statement*: Urine cultures pending. Remains on IV Lasix. Potassium still elevated at 5.2 Coding Level of Care Code Acute Code for Chg Fwd Diagnoses Acute diastolic (congestive) heart failure I50.31 Acute hyperkalemia E87.5 Acute hypercapnic respiratory failure J96.02 Bilateral pleural effusion J90 Acute hypoxemic respiratory failure J96.01 Persistent atrial fibrillation I48.19 Atrial fibrillation type: unspecified persistent
--- NOTE | 2025-02-27 14:39 | P.PN_ITS ---
Subjective 2 Subjective: no new c/o Medications: Reviewed: Yes Vitals/I&O/Wt Last Vital Signs Temp 97.4 F L 02/27/25 11:32 Pulse 82 02/27/25 13:28 Resp 18 02/27/25 13:28 BP 103/56 02/27/25 11:32 Pulse Ox 94 02/27/25 13:28 O2 Del Method Nasal Cannula 02/27/25 13:28 O2 Flow Rate 1 02/27/25 13:28 FiO2 35 02/25/25 05:00 02/26/25 02/27/25 02/27/25 22:59 06:59 14:59 Intake Total 840 / 1680 120 / 1800 840 / 840 Output Total 1600 / 2600 1100 / 3700 Balance -760 / -920 -980 / -1900 840 / 840 Weight last 48 hrs Weight 66.224 kg Weight 64.5 kg Physical Exam 2 Narrative: awake , alert , no distress PEERLA no jvd s1s2 irregualr lungs clear abd soft , non tender ext no edema no skin rash Urinary Catheter Management: Walter: Cath Placed During This Visit: yes Reason for Continuing Indwelling Catheter: Accurate Measurement of Urinary Output in Critically Ill Patients Urinary Catheter Date of Insertion: 02/24/25 Urinary Catheter Time of Insertion: 20:35 Data 02/26/25 05:37 02/27/25 07:33 Micro: Microbiology 02/26/25 04:05 Urine Culture - Preliminary Urine,Clean Catch A&P Assessment and plan 1. Acute hyperkalemia: 2. RUBY (acute kidney injury): Plan: 1. Acute kidney injury: No recent baseline labs available. Creatinine in 2022 was 1.5. Most likely his baseline is in the mid 1 range. Will continue to monitor. renal US normal and UA - no protein and no blood 2. Severe hyperkalemia:rebound hyperkalemia noted, Patient was taking potassium supplements and spironolactone at home as well as as needed naproxen -K improving , 3. CHF exacerbation status post IV diuretics- switched to oral Lasix 4. History of A-fib, on chronic anticoagulation Patient evaluated using audiovisual cart. Time spent 40 minutes. PDMP PDMP Reviewed: Not Reviewed Attestations 2 Medical Necessity Statement*: per medicine Coding Level of Care Code Acute Code for Chg Fwd Diagnoses Acute hyperkalemia E87.5 RUBY (acute kidney injury) N17.9
--- NOTE | 2025-02-27 16:26 | PC.SOCIAL ---
*IMM* Patient received a copy of the Important Message from Medicare. Copy in chart initialed and dated.
[2025-02-28] VITALS (9 sets, daily range): BP systolic 117–142; BP diastolic 53–60; PULSE 65–100; RESP 16–18; TEMP 36.4–36.7; O2SAT 87–96
[2025-02-28] MEDS: dilTIAZem ER (24HR) 180 mg Capsule PO (04:53)
[2025-02-28 06:57] LABS: Hematocrit 34.9 % (37-53); Hemoglobin 10.20 g/dL (11.27-16.99); Mean Corpuscular HGB Conc 29.2 g/dL (30-55); Mean Corpuscular Hemoglobin 23.6 pg (27-33); Mean Corpuscular Volume 80.8 fl (82-101); Nucleated Red Blood Cells % 0 %; Platelet Count 167 10^3/cmm (157-399); Red Blood Count 4.32 10^6/uL (3.85-5.65); White Blood Count 7.24 10^3/uL (3.29-11.43)
[2025-02-28 07:08] LABS: Anion Gap 9.4 (5-19); Blood Urea Nitrogen 33 mg/dL (8-23); Calcium 7.9 mg/dL (8.5-10.5); Chloride 89 mmol/L (98-107); Glucose 99 mg/dL (65-115); Osmolality Calculated 287 mOsm/kg (285-295); Potassium 4.4 mmol/L (3.5-5.1); Sodium 135 mmol/L (136-145)
[2025-02-28 07:20] LABS: Carbon Dioxide 41 mmol/L (22-29)
[2025-02-28] MEDS: cefTRIAXone 1,000 mg SDV 1000 MG IVP (10:43)
--- NOTE | 2025-02-28 10:55 | PM.DCS ---
Discharge Providers Date of Admission: 02/24/25 19:15 Date of Discharge: February 28, 2025 Attending Provider at Admission: Jose Solomon MD Attending Provider at Discharge: Jesusita De Dios MD Consults: nephrology Primary Care Provider: Marisol Santos DO Diagnoses at Discharge Discharge Diagnosis 1. Acute hyperkalemia: 2. RUBY (acute kidney injury): Reason for Visit Reason for Visit: sob Hospital Course Hospital Course Briefly, 75-year-old male who was initially on hospice, revoked hospice, presented to the hospital with complaints of shortness of breath and found to have hyperkalemia. He was found to be in acute on chronic diastolic congestive heart failure exacerbation and was put on IV diuretics. Given hyperkalemia and acute hypercapnic respiratory failure, nephrology was consulted. He received medical management for hyperkalemia and was put on Lasix which helped with hyperkalemia and also received Kayexalate. Today's potassium is normal. Will be discharging Lasix 40 p.o. twice daily. He is excepted hospice back again and be discharged home with hospice measures. Family was [place] from different [place] and they would be taking him home when he gets discharged. He has history of persistent A-fib and is on Eliquis at home which has been continued. Rest of his home medications have been resumed. He was also found to have a UTI however urine cultures do not grow anything, will discharge him on p.o. antibiotics for a total of 5-day course. He also had acute kidney injury had been improving with Lasix. He will need to follow-up with nephrology outpatient. Follow-up with PCP and nephrology outpatient and hospice team. Avoid NSAIDs. Spironolactone has been discontinued. Potassium supplements have been discontinued Physical Exam Narrative: awake , alert , no distress PEERLA no jvd s1s2 irregualr lungs clear abd soft , non tender ext no edema no skin rash Urinary Catheter Management: Walter: Cath Placed During This Visit: yes Reason for Continuing Indwelling Catheter: Accurate Measurement of Urinary Output in Critically Ill Patients Urinary Catheter Date of Insertion: 02/24/25 Urinary Catheter Time of Insertion: 20:35 Discharge Data Studies Completed and Pending Completed Studies During Hospitalization Category Date Time Status XR chest 1V portable [id number] Stat Exams 02/24/25 16:21 Completed US renal BI* [id number] Routine Ultrasound 02/26/25 03:37 Completed Pending at discharge Category Date Time Status BMP [Basic Metabolic Panel] AM LABS Lab 03/01/25 04:00 Ordered BMP [Basic Metabolic Panel] AM LABS Lab 03/02/25 04:00 Ordered CBC Auto Diff [Complete Blood Count w/Auto] AM LABS Lab 03/01/25 04:00 Ordered CBC Auto Diff [Complete Blood Count w/Auto] AM LABS Lab 03/02/25 04:00 Ordered Occult Blood Stool [Immunochemical Fecal OCB] Routine Lab 02/24/25 22:17 Uncollected Urine Culture Routine Lab 02/26/25 04:05 Results Radiology Impressions Chest X-Ray 02/24/25 16:21 IMPRESSION: Bilateral pleural effusions with adjacent atelectasis/consolidation, similar in appearance compared to teletypesetter monitor view from prior CT chest. Renal Ultrasound 02/26/25 03:37 IMPRESSION: Normal renal ultrasound. Laboratory Results WBC 7.24 10^3/uL (3.29-11.43) 02/28/25 06:42 RBC 4.32 10^6/uL (3.85-5.65) 02/28/25 06:42 Hgb 10.20 g/dL (11.27-16.99) L 02/28/25 06:42 Hct 34.9 % (37-53) L 02/28/25 06:42 MCV 80.8 fl (82-101) L 02/28/25 06:42 MCH 23.6 pg (27-33) L 02/28/25 06:42 MCHC 29.2 g/dL (30-55) L 02/28/25 06:42 RDW 15.9 % (12.1-15.1) H 02/28/25 06:42 Plt Count 167 10^3/cmm (157-399) 02/28/25 06:42 MPV 10.8 fL (7.4-10.4) H 02/28/25 06:42 Neut % (Auto) 82.8 % 02/28/25 06:42 Lymph % (Auto) 6.9 % 02/28/25 06:42 [place] % (Auto) 7.9 % 02/28/25 06:42 Eos % (Auto) 1.9 % 02/28/25 06:42 Baso % (Auto) 0.4 % 02/28/25 06:42 Neut # (Auto) 5.99 10^3/uL (1.8-7.7) 02/28/25 06:42 Lymph # (Auto) 0.5 10^3/uL (0.8-4.8) L 02/28/25 06:42 [place] # (Auto) 0.6 10^3/uL (0.2-0.9) 02/28/25 06:42 Eos # (Auto) 0.1 10^3/uL (0.0-0.8) 02/28/25 06:42 Baso # (Auto) 0.0 10^3/uL (0.0-0.1) 02/28/25 06:42 Nucleated RBC % (auto) 0 % 02/28/25 06:42 Nucleated RBCs # 0.0 /100WBC 02/28/25 06:42 Specimen Type Arterial 02/24/25 20:55 Sample Site Brachial, right 02/24/25 20:55 ABG pH 7.32 (7.35-7.45) L 02/24/25 20:55 ABG pCO2 57.2 mmHg (35-45) H 02/24/25 20:55 ABG pO2 106.0 mmHg (80.0-100.0) H 02/24/25 20:55 ABG PO2/FiO2 Ratio 235 02/24/25 20:55 ABG HCO3 29.7 mmol/L (22-26) H 02/24/25 20:55 ABG O2 Saturation 90.7 02/24/25 18:26 ABG Base Excess 2.7 mmol/L (-2.0-2.0) H 02/24/25 20:55 Perfecto Test N/a 02/24/25 20:55 A-a O2 Gradient 11.5 mmHg (5-10) H 02/24/25 18:26 Hematocrit 31.1 % (42-52) L 02/24/25 20:55 Hgb O2 Saturation 88.0 % (95-100) L 02/24/25 18:26 Carboxyhemoglobin 1.9 %THgb (0.4-20.1) 02/24/25 18:26 Methemoglobin 1.0 % (0.4-1.5) 02/24/25 18:26 Total Hemoglobin 10.8 g/dL (14-18) L 02/24/25 18:26 Sodium 141.0 mmol/L (131-143) 02/24/25 18: Potassium 7.2 mmol/L (3.5-5.0) H 02/24/25 18:26 Glucose 147.0 mg/dL (70-115) H 02/24/25 18:26 Ionized Calcium 1.3 mmol/L (1.1-1.4) 02/24/25 18:26 O2 Delivery Device Bipap 02/24/25 20:55 O2 Liters/Min 3.0 % 02/24/25 18: FiO2 45.0 % 02/24/25 20:55 PEEP 8.0 cmH20 02/24/25 20:55 Repair Operator ID [email or web address] 02/24/25 20:55 Sodium 135 mmol/L (136-145) L 02/28/25 06:42 Potassium 4.4 mmol/L (3.5-5.1) 02/28/25 06:42 Chloride 89 mmol/L (98-107) L 02/28/25 06:42 Carbon Dioxide 41 mmol/L (22-29) H 02/28/25 06:42 Anion Gap 9.4 (5-19) 02/28/25 06:42 BUN 33 mg/dL (8-23) H 02/28/25 06:42 Creatinine 1.4 mg/dL (0.7-1.2) H 02/28/25 06:42 GFR Calculation Not Reportable 02/28/25 06:42 Glucose 99 mg/dL (65-115) 02/28/25 06:42 POC Glucose 115 mg/dL (70-110) H 02/25/25 12:15 Calculated Osmolality 287 mOsm/kg (285-295) 02/28/25 06:42 Calcium 7.9 mg/dL (8.5-10.5) L 02/28/25 06:42 Iron 11 ug/dL (59-158) L 02/25/25 00:47 TIBC 311 mcg/dl 02/25/25 00:47 % Saturation 3.5 % (20-50) L 02/25/25 00:47 Unsat Iron Binding 300 ug/dL (112-347) 02/25/25 00:47 Ferritin 17 ng/mL (30-400) L 02/25/25 00:47 Total Bilirubin 0.6 mg/dL (0.15-1.2) 02/25/25 23:30 AST 10 U/L (0-40) 02/25/25 23:30 ALT 6 U/L (0-41) 02/25/25 23:30 Alkaline Phosphatase 64 U/L (40-130) 02/25/25 23:30 NT-Pro-B Natriuret Pep 93441 pg/mL (0-450) H 02/24/25 16:43 Total Protein 6.4 g/dL (6.6-8.7) L 02/25/25 23:30 Albumin 3.4 g/dL (3.5-5.2) L 02/25/25 23:30 Globulin 3.0 g/dL (1.3-4.6) 02/25/25 23:30 Urine Color Yellow (Yellow) 02/26/25 04:05 Urine Appearance Clear (CLEAR) 02/26/25 04:05 Urine pH 5.0 (5-7) 02/26/25 04:05 Ur Specific [place] 1.008 (1.005-1.030) 02/26/25 04:05 Urine Protein Negative (Negative) 02/26/25 04:05 Urine Glucose (UA) Negative (Normal) 02/26/25 04:05 Urine Ketones Negative (Negative) 02/26/25 04:05 Urine Blood Non-haemolysed trace (Negative) 02/26/25 04:05 Urine Nitrate Negative (Negative) 02/26/25 04:05 Urine Bilirubin Negative (Negative) 02/26/25 04:05 Urine Urobilinogen 0.2 mg/dL (Negative) 02/26/25 04:05 Ur Leukocyte Esterase 2+ (Negative) A 02/26/25 04:05 Urine RBC 0-2 /hpf (0-2) 02/26/25 04:05 Urine WBC 21-50 /hpf (0-5) H 02/26/25 04:05 Ur Squamous Epith Cells 0-5 /hpf (0-5) 02/26/25 04:05 Amorphous Sediment Not Reportable 02/26/25 04:05 Urine Bacteria None seen /hpf (NONE) 02/26/25 04:05 Hyaline Casts 2.87 /lpf 02/26/25 04:05 Influenza A (PCR) Negative (Negative) 02/24/25 18:38 Influenza Type B (PCR) Negative (Negative) 02/24/25 18:38 RSV (PCR) Negative (Negative) 02/24/25 18:38 SARS-CoV-2 (PCR) Negative (Negative) 02/24/25 18:38 Vitals Last Vital Signs Temp 97.8 F 02/28/25 07:29 Pulse 80 02/28/25 08:51 Resp 18 02/28/25 08:51 BP 117/55 02/28/25 07:29 Pulse Ox 92 02/28/25 08:51 O2 Del Method Nasal Cannula 02/28/25 08:51 O2 Flow Rate 1 02/28/25 08:51 FiO2 35 02/25/25 05:00 Discharge Plan Discharge Patient Disposition: Home Condition: Stable Prescriptions: New furosemide [Lasix] 40 mg tablet 40 mg PO BID Qty: 60 0RF levofloxacin 250 mg tablet 500 mg PO DAILY 3 Days Qty: 6 0RF Continued Eliquis 5 mg tablet 5 mg PO BID Qty: 60 6RF albuterol sulfate [Ventolin HFA] 90 mcg/actuation HFA aerosol inhaler 1 inh inhalation QID PRN (Reason: shortness of breath or wheezing) Qty: 8.5 6RF diltiazem HCl [Tiadylt ER] 180 mg capsule,extended release 24 hr 180 mg PO DAILY Discontinued naproxen sodium [Aleve] 220 mg tablet 220 mg PO BID PRN (Reason: Fever Or Pain) 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 OK for DC: Nephrology Discharge Order = DC NOW: Discharge Order (Routine); Ordered 02/28/25 Ordered By: Jesusita De Dios Referrals: Laury Baker MD [Hospitalist, Nephrology] Marisol Santos DO [Primary Care Provider, Family Practice] Discharge Diet: Usual diet, As Directed and Low Salt Discharge Activity: Resume usual activity Patient Instructions: Furosemide (By mouth), Levothyroxine (By mouth), Heart Failure (DC), Hyperkalemia (DC), Opioid Safety, Patient Portal & Pedro Instructions Discharge Attestations Time Spent in Discharge Care*: greater than 30 min Quality Metrics Clinical Quality Measures [ No reported AMI, CVA or VTE this stay] Coding Level of Care Code Acute Code for Chg Fwd Diagnoses Acute hyperkalemia E87.5 RUBY (acute kidney injury) N17.9
== END 2025-02-28 12:00 | disposition hospice, home (50) | DRG 291 ==
LOC: ER 20:36 → ER IP 20:39 → ICU 22:56 → MEDSURG 02-26 06:27
PROVIDERS: Emergency Medicine; Hospitalist; Internal Medicine; Admitting Provider Family Medicine; Emergency Provider Physician Assistant; PCP Family Medicine; Visit Provider Internal Medicine
DX: I11.0 Hypertensive heart disease with heart failure (principal); I50.33 Acute on chronic diastolic (congestive) heart failure; J96.02 Acute respiratory failure with hypercapnia; J96.01 Acute respiratory failure with hypoxia; N17.9 Acute kidney failure, unspecified; I48.19 Other persistent atrial fibrillation; N39.0 Urinary tract infection, site not specified; L97.929 Non-pressure chronic ulcer of unspecified part of left lower leg with unspecified severity; E87.5 Hyperkalemia; Z79.01 Long term (current) use of anticoagulants; D64.9 Anemia, unspecified
CPT/HCPCS: 36415; 36416; 36600; 51702; 71045; 76770; 80048; 80051; 80053; 81001; 82330; 82728; 82803; 82805; 82962; 83540; 83550; 83880; 84132; 85025; 87086; 87637; 93005; 94640; 94660; 94664; 96365; 96375; 96376; 99291; J0612; J0696; J1815; J1938; J7611; J7799; J9999; Q3014